=== PATIENT | male | born 1950 | race Caucasian/White ===

== ENCOUNTER 2017-01-09 17:09 | Emergency (ER) | payer OTHER, MEDICARE ==
[~2017-01-09] VITALS: Ht 185.4 cm; Wt 105.0 kg
[~2017-01-09 17:09] MED LIST: ALBU8I INH; ATOR40TA49 PO; CALTTAB PO; CARV12.52 PO; CETI10 PO; COUM5TAB PO; ECOT81TA2 PO; FIBER WELL GUMMIES PO; FURO1TAB93 PO; GNP400TA4 PO; LANO0.1212 PO; LANTUSP SQ; MAOX420T PO; MILK500C PO; MULTCHW12 PO; OSTETAB7 PO; REME15TA PO; SALM10002 PO; SERT-129 PO; VITA200017 PO; WARF2.5T40 PO; [UNRECOGNIZED DRUG - REMARK] EACH EYE; cranberry PO
[2017-01-09 17:13] VITALS: BP 95/55; PULSE 81; RESP 19; TEMP 98.4; O2SAT 99
[2017-01-09] MEDS ORDERED: SODIUM CHLORIDE 0.9% FLUSH 5 ML FLUSH IVF PRN (17:30)
[2017-01-09] MEDS ORDERED: SODIUM CHLORID 0.9% 500 ML INJ 500 ML IV ONE (17:30)
[2017-01-09 17:33] VITALS: O2SAT 100
[2017-01-09 17:34] VITALS: BP_SYST 102; BP_SYST 143; BP_SYST 89; BP_DIAS 53; BP_DIAS 61; BP_DIAS 84; RESP 20; RESP 21
[2017-01-09] MEDS ORDERED: SODIUM CHLOR 0.9% 1000 ML INJ 1,000 ML IV ONE ×2 (17:45→19:00)
--- NOTE | 2017-01-09 17:46 | PD ---
HPI Chief Complaint: Fall Time Seen by Provider: 17:27 Travel History International Travel<30 days: No Contact w/Intl Traveler<30days: No Traveled to known affect area: No History of Present Illness HPI 66-year-old male with history of previous CVA, HTN, HLD, DM and alcoholism, A. fib here with complaint of near-syncopal episode. He had been out drinking at a bar with friends today, getting out of the vehicle once he returned home patient felt generally weak and near syncopal, slumped to the ground. He did not have a syncopal episode, did not hit his head, lose consciousness and denies any nausea or vomiting. No chest pain, shortness of breath. No palpitations. When EMS arrived patient was hypotensive in the 70s systolic, pale. Normalized en route. Patient denies any symptoms at this time other than feeling generally weak and fatigued. PFSH Past Medical History Hx Anticoagulant Therapy: Yes Asthma: No Atrial Fibrillation: Yes Anxiety: Yes Depression: Yes Heart Rhythm Problems: Yes (afib) Cancer: No Cardiovascular Problems: Yes (afib) High Cholesterol: Yes Chest Pain: No Congestive Heart Failure: Yes COPD: Yes Cerebrovascular Accident: Yes Diabetes: Yes Patient Takes Glucophage: No Diminished Hearing: No Endocrine: Yes Gastrointestinal Disorders: No Genitourinary: Yes Hypertension: Yes Immune Disorder: No Implanted Vascular Access Dvce: No Kidney Stones: No Musculoskeletal: No Neurologic: Yes (Neuropathy) Psychiatric: Yes Reproductive: No Respiratory: Yes Immunizations Current: No Renal Failure: No Seizures: Yes Sleep Apnea: No Thyroid Disease: No Tetanus Vaccination: < 5 Years Influenza Vaccination: Yes Past Surgical History Abdominal Surgery: Yes (HERNIA) Appendectomy: Yes Eye Surgery: Yes (LASER FOR CATARACT and back of eyes) Tonsillectomy: Yes Other Surgery: Yes Social History Alcohol Use: Yes (DAILY ) Tobacco Use: No Substance Use: No Allergies-Medications (Allergen,Severity, Reaction): Coded Allergies: No Known Allergies (Verified , 01/09/17) Reported Meds & Prescriptions Reported Meds & Active Scripts Active Reported Glucosamine 1500 Complex (Yrawzmicpif-Wrcavvayjsw-Wrp C-) 1 Cap Cap 1,500 Mg PO DAILY [Fiber Well Gummies ] 10 Grain PO DAILY [Mauricio Red] 750 Mg PO DAILY Green Tea (Green Tea (Camillia Sinensis)) 250 Mg Cap 500 Mg PO DAILY Garlic 1,000 Mg Cap 1,000 Mg PO DAILY Aspirin EC Low Dose (Aspirin) 81 Mg Tabec 81 Mg PO DAILY Vitamin D3 (Cholecalciferol) 2,000 Unit Tab 2,000 Units PO DAILY Calcium Citrate + D3 Maximum Strength (Calcium Citrate-Vitamin D) 315-250 Mg- Unit Tab 2 Tab PO DAILY [place] Oil (Nutritional Supplements) 1 Cap Cap 1,080 Mg PO DAILY Cranberry (Cranberry (Vaccinium Macrocarpon)) 600 Mg Tab 8,400 Mg PO DAILY One-A-Day Mens (Multiple Vitamin) 1 Tab Tab 2 Tab PO DAILY Xalatan Opth Drops (Latanoprost) 0.005% Drops 1 Drop EACH EYE HS Ventolin Hfa 18 GM Inh (Albuterol Sulfate) 90 Mcg/Act Aer 2 Puff INH Q6H PRN Magnesium Oxide 420 Mg Tab 210 Mg PO DAILY Tanzeum 4-Pack Inj (Albiglutide) 30 Mg Pfpen 30 Mg SQ Q7D Lantus Inj (Insulin Glargine) 100 Unit/Ml Inj 16 Units SQ HS Remeron (Mirtazapine) 15 Mg Tab 15 Mg PO HS Zoloft (Sertraline HCl) 100 Mg Tab 150 Mg PO DAILY Lanoxin (Digoxin) 0.125 Mg Tab 0.125 Mg PO HS Coumadin (Warfarin) 5 Mg Tab 2.5 Mg PO SUTUTHSA Take 1/2 tablet (2.5mg) daily on Tuesday,Tuesday, and Tuesday Coumadin (Warfarin) 5 Mg Tab 5 Mg PO MOWEFR Take 1 tablet (5mg) on daily on Tuesday,Tuesday and Tuesday Potassium Chloride ER (Potassium Chloride) 10 Meq Tab 10 Meq PO DAILY Lasix (Furosemide) 20 Mg Tab 20 Mg PO DAILY Coreg (Carvedilol) 25 Mg Tab 12.5 Mg PO BID Review of Systems Except as stated in HPI: all other systems reviewed are Neg Physical Exam Narrative GENERAL: Well-appearing elderly male in no acute distress SKIN: Warm and dry. HEAD: Normocephalic. Atraumatic EYES: Pupils equal and round. No scleral icterus. No injection or drainage. ENT: No nasal bleeding or discharge. Mucous membranes pink and moist. NECK: Supple CARDIOVASCULAR: Regular rate and irregularly irregular rhythm. No murmur appreciated. RESPIRATORY: No accessory muscle use. Clear to auscultation. Breath sounds equal bilaterally. GASTROINTESTINAL: Abdomen soft, non-tender, nondistended. Obese MUSCULOSKELETAL: 1+ BLE edema NEUROLOGICAL: Awake and alert. Motor grossly within normal limits. Normal speech. PSYCHIATRIC: Appropriate mood and affect; insight and judgment normal. Data Data Last Documented VS Vital Signs Date Time Temp Pulse Resp B/P Pulse Ox O2 Delivery O2 Flow Rate FiO2 01/09/17 18:00 94 18 139/89 100 Room Air 01/09/17 17:13 98.4 Orders Electrocardiogram (01/09/17 17:28) Basic Metabolic Panel (Bmp) (01/09/17 17:28) Complete Blood Count With Diff (01/09/17 17:28) Magnesium (Mg) (01/09/17:28) Troponin I (01/09/17:28) Act Partial Throm Time (Ptt) (01/09/17 17:28) Prothrombin Time / Inr (Pt) (01/09/17 17:28) Ecg Monitoring (01/09/17:28) Iv Access Insert/Monitor (01/09/17 17:28) Oximetry (01/09/17 17:28) Sodium Chloride 0.9% Flush (Ns Flush) (01/09/17 17:30) Alcohol (Ethanol) (01/09/17 17:28) Sodium Chlorid 0.9% 500 Ml Inj (Ns 500 M (01/09/17 17:30) Orthostatic Vital Signs (01/09/17 17:30) Sodium Chlor 0.9% 1000 Ml Inj (Ns 1000 M (01/09/17 17:45) Labs Laboratory Tests Test 01/09/17 17:45 White Blood Count 5.4 TH/MM3 Red Blood Count 3.14 MIL/MM3 Hemoglobin 10.9 GM/DL Hematocrit 32.4 % Mean Corpuscular Volume 103.2 FL Mean Corpuscular Hemoglobin 34.8 PG Mean Corpuscular Hemoglobin 33.7 % Concent Red Cell Distribution Width 15.3 % Platelet Count 125 TH/MM3 Mean Platelet Volume 9.8 FL Neutrophils (%) (Auto) 68.4 % Lymphocytes (%) (Auto) 17.6 % Monocytes (%) (Auto) 9.0 % Eosinophils (%) (Auto) 3.8 % Basophils (%) (Auto) 1.2 % Neutrophils # (Auto) 3.7 TH/MM3 Lymphocytes # (Auto) 0.9 TH/MM3 Monocytes # (Auto) 0.5 TH/MM3 Eosinophils # (Auto) 0.2 TH/MM3 Basophils # (Auto) 0.1 TH/MM3 CBC Comment DIFF FINAL Differential Comment Prothrombin Time 17.5 SEC Prothromb Time International 1.6 RATIO Ratio Activated Partial 29.5 SEC Thromboplast Time Sodium Level 137 MEQ/L Potassium Level 4.5 MEQ/L Chloride Level 106 MEQ/L Carbon Dioxide Level 17.3 MEQ/L Anion Gap 14 MEQ/L Blood Urea Nitrogen 46 MG/DL Creatinine 2.97 MG/DL Estimat Glomerular Filtration 21 ML/MIN Rate Random Glucose 172 MG/DL Calcium Level 8.9 MG/DL Magnesium Level 2.0 MG/DL Troponin I LESS THAN 0.02 NG/ML Ethyl Alcohol Level 52 MG/DL [facility] Medical Decision Making Medical Screen Exam Complete: Yes Emergency Medical Condition: Yes Medical Record Reviewed: Yes Differential Diagnosis 66-year-old male with history of previous CVA, HTN, HLD, DM and alcoholism, A. fib here with complaint of near-syncopal episode. Differential includes ACS, arrhythmia, vasovagal/orthostatic syncope, alcohol intoxication, electrolyte abnormality, symptomatic anemia and less likely CHF exacerbation. Narrative Course Patient placed on monitor, IV established and blood obtained. Twelve-lead EKG shows A. fib without notable ST or T-wave abnormalities and normal intervals. Orthostatics were obtained and are grossly positive with a drop in blood pressure from 143/84-89/53 from lying to standing. Patient was given 1 L normal saline bolus. CBC, BMP, magnesium, troponin, coags, blood alcohol level were obtained and notable for BUN 46, creatinine 2.97 which is at baseline per patient. Blood alcohol level 52. After 1 L normal saline bolus patient's orthostatic vital signs are 191/107 while lying, 140/71 sitting and 109/60 while standing. He was given second liter normal saline bolus with plans to repeat vital signs, trial of ambulation for hopeful disposition home. Diagnosis Primary Impression: Orthostatic syncope Karla Fitzgerald MD Jan 09, 2017 17:45
[2017-01-09 18:00] VITALS: BP 139/89; PULSE 94; RESP 18; O2SAT 100
[2017-01-09 18:07] LABS: AUTOMATED NEUTROPHIL # 3.7 TH/MM3 (1.8-7.7); BASOPHIL # 0.1 TH/MM3 (0-0.2); BASOPHIL % 1.2 % (0.0-2.0); EOSINOPHIL # 0.2 TH/MM3 (0-0.4); EOSINOPHIL % 3.8 % (0.0-4.0); HEMATOCRIT 32.4 % (39.0-51.0); HEMO FLAGS DIFF FINAL; LYMPH % 17.6 % (9.0-44.0); LYMPHOCYTE # 0.9 TH/MM3 (1.0-4.8); MEAN CELL VOLUME 103.2 FL (80.0-100.0); MEAN CORPUSCULAR HEMOGLOBIN 34.8 PG (27.0-34.0); MEAN CORPUSCULAR HGB CONC 33.7 % (32.0-36.0); NEUT % 68.4 % (16.0-70.0); PLATELET COUNT 125 TH/MM3 (150-450); RED BLOOD COUNT 3.14 MIL/MM3 (4.50-5.90); RED CELL DISTRIBUTION WIDTH 15.3 % (11.6-17.2); WHITE BLOOD COUNT 5.4 TH/MM3 (4.0-11.0)
[2017-01-09 18:15] LABS: APTT (PATIENT) 29.5 SEC (24.3-30.1); INTERNATIONAL NORMALIZED RATIO 1.6 RATIO; PROTHROMBIN TIME - PATIENT 17.5 SEC (9.8-11.6)
[2017-01-09] MEDS ORDERED: FURO1TAB62 PO (18:25)
[2017-01-09] MEDS ORDERED: CORE25TA PO (18:25)
[2017-01-09] MEDS ORDERED: POTA10TA2 PO (18:25)
[2017-01-09] MEDS ORDERED: CRAN600T PO (18:26)
[2017-01-09] MEDS ORDERED: COUM5TAB PO ×2 (18:26)
[2017-01-09] MEDS ORDERED: MAGN420T PO (18:26)
[2017-01-09] MEDS ORDERED: CALC1TAB19 PO (18:26)
[2017-01-09] MEDS ORDERED: FIBER WELL GUMMIES PO (18:26)
[2017-01-09] MEDS ORDERED: GLUC15002 PO (18:26)
[2017-01-09] MEDS ORDERED: LANO0.1212 PO (18:26)
[2017-01-09] MEDS ORDERED: MEGA RED PO (18:26)
[2017-01-09] MEDS ORDERED: ALBI1INJ SQ (18:26)
[2017-01-09] MEDS ORDERED: LANTUS2P SQ (18:26)
[2017-01-09] MEDS ORDERED: ASPI81TA2 PO (18:26)
[2017-01-09] MEDS ORDERED: SALM10002 PO (18:26)
[2017-01-09] MEDS ORDERED: GREE250C PO (18:26)
[2017-01-09] MEDS ORDERED: GARL1CAP PO (18:26)
[2017-01-09] MEDS ORDERED: REME15TA PO (18:26)
[2017-01-09] MEDS ORDERED: ZOLO100T PO (18:26)
[2017-01-09] MEDS ORDERED: VITA200012 PO (18:26)
[2017-01-09] MEDS ORDERED: ONE-TAB4 PO (18:26)
[2017-01-09] MEDS ORDERED: VENTAER INH (18:26)
[2017-01-09] MEDS ORDERED: LATA.005%O EACH EYE (18:26)
[2017-01-09 18:40] LABS: ANION GAP 14 MEQ/L (5-15); BICARBONATE 17.3 MEQ/L (21.0-32.0); BLOOD UREA NITROGEN 46 MG/DL (7-18); CHLORIDE 106 MEQ/L (98-107); GLOMERULAR FILTRATION RATE 21 ML/MIN (>89); POTASSIUM 4.5 MEQ/L (3.5-5.1); SODIUM (NA) 137 MEQ/L (136-145)
[2017-01-09 19:00] VITALS: BP_SYST 109; BP_SYST 140; BP_SYST 191; BP_DIAS 107; BP_DIAS 60; BP_DIAS 71
--- NOTE | 2017-01-09 20:12 | PD ---
Data Data Last Documented VS Vital Signs Date Time Temp Pulse Resp B/P Pulse Ox O2 Delivery O2 Flow Rate FiO2 01/09/17 20:24 95 159/98 135/92 124/73 01/09/17 18:00 18 100 Room Air 01/09/17 17:13 98.4 Orders Electrocardiogram (01/09/17 17:28) Basic Metabolic Panel (Bmp) (01/09/17 17:28) Complete Blood Count With Diff (01/09/17 17:28) Magnesium (Mg) (01/09/17 17:28) Troponin I (01/09/17 17:28) Act Partial Throm Time (Ptt) (01/09/17 17:28) Prothrombin Time / Inr (Pt) (01/09/17 17:28) Ecg Monitoring (01/09/17:28) Iv Access Insert/Monitor (01/09/17 17:28) Oximetry (01/09/17 17:28) Sodium Chloride 0.9% Flush (Ns Flush) (01/09/17 17:30) Alcohol (Ethanol) (01/09/17 17:28) Sodium Chlorid 0.9% 500 Ml Inj (Ns 500 M (01/09/17 17:30) Orthostatic Vital Signs (01/09/17 17:30) Sodium Chlor 0.9% 1000 Ml Inj (Ns 1000 M (01/09/17 17:45) Sodium Chlor 0.9% 1000 Ml Inj (Ns 1000 M (01/09/17 19:00) Labs Laboratory Tests Test 01/09/17 17:45 White Blood Count 5.4 TH/MM3 Red Blood Count 3.14 MIL/MM3 Hemoglobin 10.9 GM/DL Hematocrit 32.4 % Mean Corpuscular Volume 103.2 FL Mean Corpuscular Hemoglobin 34.8 PG Mean Corpuscular Hemoglobin 33.7 % Concent Red Cell Distribution Width 15.3 % Platelet Count 125 TH/MM3 Mean Platelet Volume 9.8 FL Neutrophils (%) (Auto) 68.4 % Lymphocytes (%) (Auto) 17.6 % Monocytes (%) (Auto) 9.0 % Eosinophils (%) (Auto) 3.8 % Basophils (%) (Auto) 1.2 % Neutrophils # (Auto) 3.7 TH/MM3 Lymphocytes # (Auto) 0.9 TH/MM3 Monocytes # (Auto) 0.5 TH/MM3 Eosinophils # (Auto) 0.2 TH/MM3 Basophils # (Auto) 0.1 TH/MM3 CBC Comment DIFF FINAL Differential Comment Prothrombin Time 17.5 SEC Prothromb Time International 1.6 RATIO Ratio Activated Partial 29.5 SEC Thromboplast Time Sodium Level 137 MEQ/L Potassium Level 4.5 MEQ/L Chloride Level 106 MEQ/L Carbon Dioxide Level 17.3 MEQ/L Anion Gap 14 MEQ/L Blood Urea Nitrogen 46 MG/DL Creatinine 2.97 MG/DL Estimat Glomerular Filtration 21 ML/MIN Rate Random Glucose 172 MG/DL Calcium Level 8.9 MG/DL Magnesium Level 2.0 MG/DL Troponin I LESS THAN 0.02 NG/ML Ethyl Alcohol Level 52 MG/DL MDM Supervised Visit with RANJITH: Yes Diagnosis Primary Impression: Orthostatic syncope Sukumar He MD Jan 09, 2017 20:12
[2017-01-09 20:24] VITALS: BP_SYST 124; BP_SYST 135; BP_SYST 159; BP_DIAS 73; BP_DIAS 92; BP_DIAS 98
--- NOTE | 2017-01-09 20:55 | PD ---
Data Data Last Documented VS Vital Signs Date Time Temp Pulse Resp B/P Pulse Ox O2 Delivery O2 Flow Rate FiO2 01/09/17 20:24 95 159/98 135/92 124/73 01/09/17 18:00 18 100 Room Air 01/09/17 17:13 98.4 Orders Electrocardiogram (01/09/17 17:28) Basic Metabolic Panel (Bmp) (01/09/17 17:28) Complete Blood Count With Diff (01/09/17 17:28) Magnesium (Mg) (01/09/17 17:28) Troponin I (01/09/17 17:28) Act Partial Throm Time (Ptt) (01/09/17 17:28) Prothrombin Time / Inr (Pt) (01/09/17 17:28) Ecg Monitoring (01/09/17:28) Iv Access Insert/Monitor (01/09/17 17:28) Oximetry (01/09/17 17:28) Sodium Chloride 0.9% Flush (Ns Flush) (01/09/17 17:30) Alcohol (Ethanol) (01/09/17 17:28) Sodium Chlorid 0.9% 500 Ml Inj (Ns 500 M (01/09/17 17:30) Orthostatic Vital Signs (01/09/17 17:30) Sodium Chlor 0.9% 1000 Ml Inj (Ns 1000 M (01/09/17 17:45) Sodium Chlor 0.9% 1000 Ml Inj (Ns 1000 M (01/09/17 19:00) Labs Laboratory Tests Test 01/09/17 17:45 White Blood Count 5.4 TH/MM3 Red Blood Count 3.14 MIL/MM3 Hemoglobin 10.9 GM/DL Hematocrit 32.4 % Mean Corpuscular Volume 103.2 FL Mean Corpuscular Hemoglobin 34.8 PG Mean Corpuscular Hemoglobin 33.7 % Concent Red Cell Distribution Width 15.3 % Platelet Count 125 TH/MM3 Mean Platelet Volume 9.8 FL Neutrophils (%) (Auto) 68.4 % Lymphocytes (%) (Auto) 17.6 % Monocytes (%) (Auto) 9.0 % Eosinophils (%) (Auto) 3.8 % Basophils (%) (Auto) 1.2 % Neutrophils # (Auto) 3.7 TH/MM3 Lymphocytes # (Auto) 0.9 TH/MM3 Monocytes # (Auto) 0.5 TH/MM3 Eosinophils # (Auto) 0.2 TH/MM3 Basophils # (Auto) 0.1 TH/MM3 CBC Comment DIFF FINAL Differential Comment Prothrombin Time 17.5 SEC Prothromb Time International 1.6 RATIO Ratio Activated Partial 29.5 SEC Thromboplast Time Sodium Level 137 MEQ/L Potassium Level 4.5 MEQ/L Chloride Level 106 MEQ/L Carbon Dioxide Level 17.3 MEQ/L Anion Gap 14 MEQ/L Blood Urea Nitrogen 46 MG/DL Creatinine 2.97 MG/DL Estimat Glomerular Filtration 21 ML/MIN Rate Random Glucose 172 MG/DL Calcium Level 8.9 MG/DL Magnesium Level 2.0 MG/DL Troponin I LESS THAN 0.02 NG/ML Ethyl Alcohol Level 52 MG/DL MDM Medical Record Reviewed: Yes Supervised Visit with RANJITH: No Narrative Course CBC & BMP Diagram 01/09/17 17:45 Tn < 0.02 EtOH 52 INR 1.6 EKG: A. fib without notable ST or T-wave abnormalities and normal intervals Ambulatory without difficulty. Orthostasis has improved. [facility] Diagnosis Primary Impression: Orthostatic syncope Referrals: [facility] [place] 2 days Additional Instruction: You have a choice when it comes to health care, and we are glad that you chose [facility]. Hopefully, we have met your expectations on today's visit. You are welcome to return to [facility] at any time, as we are committed to meeting the health care needs of our community. Med/Other Pt SpecificInfo: No Change to Meds Disposition: 01 DISCHARGE HOME Condition: Stable Sukumar He MD Jan 09, 2017 20:55
--- NOTE | 2017-01-10 14:30 | EKG ---
Date Performed: 01/09/2017 Time Performed: 17:27:28 PTAGE: 66 years EKG: ATRIAL FIBRILLATION MODERATE ST DEPRESSION ABNORMAL ECG PREVIOUS TRACING : 08/09/2016 16.52 DOCTOR: [place] Interpretating Date/Time 01/10/2017 14:27:40
== END 2017-01-09 22:19 | disposition home or self-care (01) ==
LOC: NEPC 17:09
DX: I95.1 Orthostatic hypotension (principal); R55 Syncope and collapse; I10 Essential (primary) hypertension; E78.5 Hyperlipidemia, unspecified; E11.9 Type 2 diabetes mellitus without complications; I48.91 Unspecified atrial fibrillation; R94.31 Abnormal electrocardiogram [ECG] [EKG]; Z79.01 Long term (current) use of anticoagulants; Z79.4 Long term (current) use of insulin; Z86.73 Personal history of transient ischemic attack (TIA), and cerebral infarction without residual deficits; Z86.79 Personal history of other diseases of the circulatory system; Z87.09 Personal history of other diseases of the respiratory system; Z87.448 Personal history of other diseases of urinary system; Z86.69 Personal history of other diseases of the nervous system and sense organs; Z86.59 Personal history of other mental and behavioral disorders
CPT/HCPCS: 80048; 80320; 83735; 84484; 85025; 85610; 85730; 93005; 96360; 96361; 99284; J7030

== ENCOUNTER 2018-04-13 10:14 | Inpatient (IN) | payer MEDICARE, OTHER ==
[2018-04-13] VITALS (15 sets, daily range): BP systolic 93–198; BP diastolic 63–106; PULSE 54–93; RESP 12–26; TEMP 97.6–98.9; O2SAT 95–100
[~2018-04-13] VITALS: Ht 180.3 cm; Wt 112.0 kg
[~2018-04-13 10:14] MED LIST changes: +ALBI1INJ SQ; -ALBU8I INH; +ASPI81TA22 PO; -ATOR40TA49 PO; +CALC1TAB19 PO; -CALTTAB PO; -CARV12.52 PO; -CETI10 PO; +CORE25TA PO; +CRAN600T PO; -ECOT81TA2 PO; +FURO1TAB62 PO; -FURO1TAB93 PO; +GARL1CAP PO; +GLUCOSAMINE 1501 CAP PO; -GNP400TA4 PO; +GREE250C PO; +LANTUS2P SQ; -LANTUSP SQ; +LATA.005%O EACH EYE; +MAGN420T PO; -MAOX420T PO; +MEGA RED PO; -MILK500C PO; -MULTCHW12 PO; +ONE-TAB4 PO; -OSTETAB7 PO; +POTA10TA2 PO; -SERT-129 PO; +VENTAER INH; +VITA200012 PO; -VITA200017 PO; -WARF2.5T40 PO; +ZOLO100T PO; -[UNRECOGNIZED DRUG - REMARK] EACH EYE; -cranberry PO
[2018-04-13] MEDS ORDERED: ETOMIDATE 40 MG/20 ML VIAL ONE (10:22)
[2018-04-13] MEDS ORDERED: VECURONIUM BROMIDE 10 MG VIAL ONE (10:23)
[2018-04-13] MEDS ORDERED: SODIUM CHLOR 0.9% 1000 ML INJ 1,000 ML IV ONE ×2 (10:23→11:15)
[2018-04-13] MEDS ORDERED: PROPOFOL 200 MG/20 ML AMP IV ONE (10:30)
[2018-04-13] MEDS ORDERED: VECURONIUM BROMIDE 10 MG VIAL IV PUSH ONE (10:30)
[2018-04-13] MEDS ORDERED: ETOMIDATE 20 MG/10 ML VIAL IVP ONE (10:30)
[2018-04-13] MEDS ORDERED: PROPOFOL 1000 MG/100 ML INJ 100 ML IV PRN (10:30)
[2018-04-13] MEDS ORDERED: SODIUM CHLORIDE 0.9% FLUSH 10 ML FLUSH IVF PRN (10:30)
--- NOTE | 2018-04-13 10:50 | PD ---
HPI Chief Complaint: Code Blue Time Seen by Provider: 10:23 Travel History International Travel<30 days: No Contact w/Intl Traveler<30days: No Traveled to known affect area: No History of Present Illness HPI 68-year-old male patient presents to the ER today brought in by EMS was a CODE BLUE, was in PEA arrest when they found him slumped in the car, apparently had just eaten at a restaurant and walked out to his car, and slumped over according to patient's . He was in PEA and was given 3 rounds of CPR and epinephrine. He arrives with bag valve mask in progress, EMS noted that he had taken a few gas of breathing while they were on the ramp, and by the time he got into the ER room, he had a detectable pulse, perfusing rhythm seen on monitor with good blood pressure. He is still unresponsive to pain. He was intubated by me for airway protection. Modifying Factors: None Associated Signs & Symptoms: PEA arrest, intubated Risk Factors: Multiple medical issues PFSH Past Medical History Hx Anticoagulant Therapy: Yes Asthma: No Atrial Fibrillation: Yes Anxiety: Yes Depression: Yes Heart Rhythm Problems: Yes (afib) Cancer: No Cardiovascular Problems: Yes (afib) High Cholesterol: Yes Chest Pain: No Congestive Heart Failure: Yes COPD: Yes Cerebrovascular Accident: Yes Diabetes: Yes Diminished Hearing: No Endocrine: Yes Gastrointestinal Disorders: No Genitourinary: Yes Hypertension: Yes Immune Disorder: No Implanted Vascular Access Dvce: No Kidney Stones: No Musculoskeletal: No Neurologic: Yes (Neuropathy) Psychiatric: Yes Reproductive: No Respiratory: Yes Immunizations Current: No Renal Failure: No Seizures: Yes Sleep Apnea: No Thyroid Disease: No Past Surgical History Abdominal Surgery: Yes (HERNIA) Appendectomy: Yes Eye Surgery: Yes (LASER FOR CATARACT and back of eyes) Tonsillectomy: Yes Other Surgery: Yes Social History Alcohol Use: Yes (DAILY ) Tobacco Use: No Substance Use: No Allergies-Medications (Allergen,Severity, Reaction): Coded Allergies: No Known Allergies (Verified , 01/09/17) Reported Meds & Prescriptions Reported Meds & Active Scripts Active Reported Buspirone (Buspirone HCl) 15 Mg Tab 15 Mg PO BID Carbidopa-Levodopa 25-100 Mg Tab 1 Tab PO HS Carbidopa-Levodopa 25-100 Mg Tab 1 Tab PO Q8HR Digoxin 0.125 Mg Tab 0.125 Mg PO DAILY [Fiber Well Gummies ] 10 Grain PO DAILY [Mauricio Red] 750 Mg PO DAILY Aspirin EC Low Dose (Aspirin) 81 Mg Tabec 81 Mg PO DAILY Calcium Citrate + D3 Maximum Strength (Calcium Citrate-Vitamin D) 315-250 Mg- Unit Tab 2 Tab PO DAILY Voss Oil (Nutritional Supplements) 1 Cap Cap 1,080 Mg PO DAILY One-A-Day Mens (Multiple Vitamin) 1 Tab Tab 2 Tab PO DAILY Xalatan Opth Drops (Latanoprost) 0.005% Drops 1 Drop EACH EYE HS Ventolin Hfa 18 GM Inh (Albuterol Sulfate) 90 Mcg/Act Aer 2 Puff INH Q6H PRN Magnesium Oxide 420 Mg Tab 210 Mg PO DAILY Tanzeum 4-Pack Inj (Albiglutide) 30 Mg Pfpen 30 Mg SQ Q7D Lantus Inj (Insulin Glargine) 100 Unit/Ml Inj 16 Units SQ HS Remeron (Mirtazapine) 15 Mg Tab 15 Mg PO HS Zoloft (Sertraline HCl) 100 Mg Tab 150 Mg PO DAILY Coumadin (Warfarin) 5 Mg Tab 2.5 Mg PO SUTUTHSA Take 1/2 tablet (2.5mg) daily on Tuesday,Tuesday, and Tuesday Coumadin (Warfarin) 5 Mg Tab 5 Mg PO MOWEFR Take 1 tablet (5mg) on daily on Tuesday,Tuesday and Tuesday Potassium Chloride ER (Potassium Chloride) 10 Meq Tab 10 Meq PO DAILY Lasix (Furosemide) 20 Mg Tab 20 Mg PO DAILY Coreg (Carvedilol) 25 Mg Tab 12.5 Mg PO BID Review of Systems ROS Limitations: Intubated Physical Exam Narrative GENERAL: Well-developed elderly male patient currently unresponsive to pain, GCS 3, intubated by me in the ER. SKIN: Focused skin assessment, cool and diaphoretic. HEAD: Atraumatic. Normocephalic. EYES: Pupils equal and round. No scleral icterus. No injection or drainage. ENT: No nasal bleeding or discharge. Mucous membranes pink and moist. NECK: Trachea midline. No JVD. CARDIOVASCULAR: Regular rate and rhythm. No murmur appreciated. RESPIRATORY: Bag valve mask in progress initially, intubated, breath sounds heard on both sides without coarse breath sounds identified. GASTROINTESTINAL: Abdomen soft, non-tender, moderately distended. Hepatic and splenic margins not palpable. Notable ecchymosis to the lower abdomen and right flank area. MUSCULOSKELETAL: No obvious deformities. No clubbing. No cyanosis. No edema. NEUROLOGICAL: Intubated, unresponsive, GCS 3. PSYCHIATRIC: Unable to assess. Data Data Last Documented VS Vital Signs Date Time Temp Pulse Resp B/P (MAP) Pulse Ox O2 Delivery O2 Flow Rate FiO2 04/13/18 11:58 54 12 93/63 (73) 100 Auto-Vent 100 04/13/18 10:27 98.9 Orders Orders Etomidate Inj (Amidate Inj) (04/13/18 10:22) Vecuronium 10 Mg Inj (Norcuron 10 Mg Inj (04/13/18 10:23) Chest, Single Ap (04/13/18 10:23) Arterial Blood Gas (Abg) (04/13/18 10:23) Ecg Monitoring (04/13/18 10:23) Iv Access Insert/Monitor (04/13/18 10:23) Ng Gastric Tube Insert/Monitor (04/13/18 10:23) Urinary Catheter Insert/Apply (04/13/18 10:23) Oximetry (04/13/18 10:23) Etomidate Inj (Amidate Inj) (04/13/18 10:30) Vecuronium 10 Mg Inj (Norcuron 10 Mg Inj (04/13/18 10:30) Sodium Chloride 0.9% Flush (Ns Flush) (04/13/18 10:30) Sodium Chlor 0.9% 1000 Ml Inj (Ns 1000 M (04/13/18 10:23) Restraints Non-Violent ABHI.Q3H (04/13/18 10:23) Propofol 200 Mg/20 Ml Inj (Diprivan 200 (04/13/18 10:30) Propofol 1000 Mg/100 Ml Inj (Diprivan 10 (04/13/18 10:30) Electrocardiogram (04/13/18 10:26) Complete Blood Count With Diff (04/13/18 10:26) Comprehensive Metabolic Panel (04/13/18 10:26) Magnesium (Mg) (04/13/18 10:26) Ckmb (Isoenzyme) Profile (04/13/18 10:26) Troponin I (04/13/18 10:26) Act Partial Throm Time (Ptt) (04/13/18 10:26) Prothrombin Time / Inr (Pt) (04/13/18 10:26) Ct Brain W/O Iv Contrast(Rout) (04/13/18 10:26) Sodium Chlor 0.9% 1000 Ml Inj (Ns 1000 M (04/13/18 11:15) Sodium Bicarbonate 8.4% Inj (Sodium Bica (04/13/18 11:30) Ct Pulmonary Angiogram (04/13/18 11:30) Electrocardiogram (04/13/18 11:09) Admit Order (Ed Use Only) (04/13/18 11:54) Labs Laboratory Tests Test 04/13/18 11:04 04/13/18 11:08 Blood Gas Puncture Site RT RADIAL Blood Gas Patient Temperature 98.6 Blood Gas HCO3 16 mmol/L Blood Gas Base Excess -12.4 mmol/L Blood Gas Oxygen Saturation 97 % Arterial Blood pH 7.06 Arterial Blood Partial Pressure CO2 60 mmHg Arterial Blood Partial Pressure O2 394 mmHG Arterial Blood Oxygen Content 14.7 Vol % Arterial Blood Carboxyhemoglobin 1.0 % Arterial Blood Methemoglobin 1.0 % Blood Gas Hemoglobin 10.0 G/DL Oxygen Delivery Device VENTILATOR Blood Gas Ventilator Setting SEE COMMENTS Blood Gas Inspired Oxygen 100 % White Blood Count 5.7 TH/MM3 Red Blood Count 2.81 MIL/MM3 Hemoglobin 10.1 GM/DL Hematocrit 32.0 % Mean Corpuscular Volume 113.8 FL Mean Corpuscular Hemoglobin 35.9 PG Mean Corpuscular Hemoglobin Concent 31.6 % Red Cell Distribution Width 16.4 % Platelet Count 116 TH/MM3 Mean Platelet Volume 10.0 FL Neutrophils (%) (Auto) 68.3 % Lymphocytes (%) (Auto) 21.3 % Monocytes (%) (Auto) 6.5 % Eosinophils (%) (Auto) 3.0 % Basophils (%) (Auto) 0.9 % Neutrophils # (Auto) 3.9 TH/MM3 Lymphocytes # (Auto) 1.2 TH/MM3 Monocytes # (Auto) 0.4 TH/MM3 Eosinophils # (Auto) 0.2 TH/MM3 Basophils # (Auto) 0.1 TH/MM3 CBC Comment AUTO DIFF Prothrombin Time 23.9 SEC Prothromb Time International Ratio 2.4 RATIO Activated Partial Thromboplast Time 29.7 SEC Blood Urea Nitrogen 48 MG/DL Creatinine 3.12 MG/DL Random Glucose 164 MG/DL Total Protein 7.1 GM/DL Albumin 3.1 GM/DL Calcium Level 8.2 MG/DL Magnesium Level 2.1 MG/DL Alkaline Phosphatase 82 U/L Aspartate Amino Transf (AST/SGOT) 253 U/L Alanine Aminotransferase (ALT/SGPT) 27 U/L Total Bilirubin 0.6 MG/DL Sodium Level 140 MEQ/L Potassium Level 5.6 MEQ/L Chloride Level 111 MEQ/L Carbon Dioxide Level 16.0 MEQ/L Anion Gap 13 MEQ/L Estimat Glomerular Filtration Rate 20 ML/MIN Total Creatine Kinase 72 U/L Troponin I LESS THAN 0.02 NG/ML MDM Medical Decision Making Medical Screen Exam Complete: Yes Emergency Medical Condition: Yes Medical Record Reviewed: Yes Interpretation(s) EKG shows normal sinus rhythm at a rate of 60 bpm. No signs of acute ST elevations or depressions. Laboratory Tests Test 04/13/18 11:04 04/13/18 11:08 Blood Gas HCO3 16 mmol/L (22-26) Blood Gas Base Excess -12.4 mmol/L (-2-2) Arterial Blood pH 7.06 (7.380-7.420) Arterial Blood Partial Pressure CO2 60 mmHg (38-42) Arterial Blood Partial Pressure O2 394 mmHG (61-120) Blood Gas Hemoglobin 10.0 G/DL (12.0-16.0) Red Blood Count 2.81 MIL/MM3 (4.50-5.90) Hemoglobin 10.1 GM/DL (13.0-17.0) Hematocrit 32.0 % (39.0-51.0) Mean Corpuscular Volume 113.8 FL (80.0-100.0) Mean Corpuscular Hemoglobin 35.9 PG (27.0-34.0) Mean Corpuscular Hemoglobin Concent 31.6 % (32.0-36.0) Platelet Count 116 TH/MM3 (150-450) Prothrombin Time 23.9 SEC (9.8-11.6) Blood Urea Nitrogen 48 MG/DL (7-18) Creatinine 3.12 MG/DL (0.60-1.30) Random Glucose 164 MG/DL (74-106) Albumin 3.1 GM/DL (3.4-5.0) Calcium Level 8.2 MG/DL (8.5-10.1) Aspartate Amino Transf (AST/SGOT) 253 U/L (15-37) Potassium Level 5.6 MEQ/L (3.5-5.1) Chloride Level 111 MEQ/L (98-107) Carbon Dioxide Level 16.0 MEQ/L (21.0-32.0) Estimat Glomerular Filtration Rate 20 ML/MIN (>89) Troponin I LESS THAN 0.02 NG/ML Last 24 hours Impressions Chest X-Ray 04/13/18 1023 Signed Impressions: CONCLUSION: Endotracheal tube and nasogastric tube in good position. Bilateral airspace dis ease as above without effusion or pneumothorax. Differential Diagnosis PEA arrest/intubated Narrative Course Patient had regained pulses by the time he made it to the ER. Patient is intubated by me for airway protection. Initial ABG postcode shows significant respiratory and likely metabolic acidosis. Patient was given bicarb and his respiratory rate was increased, his oxygenation was decreased to 60% on the respirator. Chest x-ray shows that the ET tube is in place. Patient's arrives and notes that the patient is a DNR. I have apologized her, we were not aware of his DNR order, but at this point, I have made sure that DNR paperwork has been placed on patient's chart for any further codes. Lab work shows that he has elevated BUN and creatinine, he is dialysis, his potassium is somewhat elevated. I have talked to project portfolio analyst, , who came down to see the patient, wanted me to get a CT of the head and CTA of the chest to rule out PE for determination of further treatment. He accepts the case for admission. Aggregate critical care time was 45 minutes. Time to perform other separately billable procedures was not included in the critical care time. My time did not include minutes spent treating any other patients simultaneously or on activities that did not directly contribute to the patient's treatment. The services I provided to this patient were to treat and/or prevent clinically significant deterioration that could result in: Respiratory arrest, dysrhythmias , I provided critical care services requiring my management, as noted below: Chart data review, documentation time, medication orders and management, vital sign assessments/reviewing monitor data, ordering and reviewing lab tests, ordering and interpreting/reviewing x-rays and diagnostic studies, care of the patient and discussion of the patient with the admitting physicians. Procedures Procedure Narrative After the risks and benefits were discussed the following procedure was performed: INTUBATION: The patient was put in optimal position for the procedure. Rapid sequence intubation was initiated by me using 20 milligrams of etomidate IV and 10 milligrams of vecuronium] IV. The patient was intubated with a 7.5 cuffed endotracheal tube. Tube placement was confirmed by visualization of the tube and balloon passing through the cords, capnometry and subsequent chest x-ray. Breath sounds were equal and well aerated bilaterally postintubation. No breath sounds over stomach. Patient tolerated procedure well. Diagnosis Primary Impression: PEA (Pulseless electrical activity) Additional Impression: Endotracheally intubated Admitting Information Admitting Physician Requests: Admit Brii Chew MD April 13, 2018 10:50
--- NOTE | 2018-04-13 11:04 | RADRPT ---
EXAM DATE: 04/13/2018 10:56 AM EDT AGE/SEX: 68 years / Male INDICATIONS: Post intubation CLINICAL DATA: This is the patient's subsequent encounter. Patient reports that signs and symptoms h ave been present for 1 day and indicates a pain score of Nonresponsive. MEDICAL/SURGICAL HISTORY: Non-responsive. Non-responsive. COMPARISON: [facility] [place], CHEST SINGLE AP, 08/09/2016. . FINDINGS: Endotracheal tube in good position. NG enters stomach. Bilateral airspace disease present with more c onsolidative appearance in the right upper lobe and right perihilar region. Differential diagnosis in cludes pneumonia and aspiration. No pneumothorax. No significant effusion. Cardiomegaly. CONCLUSION: Endotracheal tube and nasogastric tube in good position. Bilateral airspace disease as above without effusion or pneumothorax. Electronically signed by: Luiz Bruce MD 04/13/2018 11:03 AM EDT
[2018-04-13] MEDS ORDERED: SODIUM BICARBONATE 8.4% INJ 50 MEQ/50 ML SYR IV PUSH ONE (11:30)
[2018-04-13 11:34] LABS: AUTOMATED NEUTROPHIL # 3.9 TH/MM3 (1.8-7.7); BASOPHIL # 0.1 TH/MM3 (0-0.2); BASOPHIL % 0.9 % (0.0-2.0); EOSINOPHIL # 0.2 TH/MM3 (0-0.4); HEMOGLOBIN 10.1 GM/DL (13.0-17.0); LYMPH % 21.3 % (9.0-44.0); LYMPHOCYTE # 1.2 TH/MM3 (1.0-4.8); MEAN CELL VOLUME 113.8 FL (80.0-100.0); MEAN CORPUSCULAR HEMOGLOBIN 35.9 PG (27.0-34.0); MEAN CORPUSCULAR HGB CONC 31.6 % (32.0-36.0); MONO % 6.5 % (0.0-8.0); MONOCYTE # 0.4 TH/MM3 (0-0.9); NEUT % 68.3 % (16.0-70.0); PLATELET COUNT 116 TH/MM3 (150-450); RED BLOOD COUNT 2.81 MIL/MM3 (4.50-5.90); RED CELL DISTRIBUTION WIDTH 16.4 % (11.6-17.2); WHITE BLOOD COUNT 5.7 TH/MM3 (4.0-11.0)
[2018-04-13 11:44] LABS: INTERNATIONAL NORMALIZED RATIO 2.4 RATIO; PROTHROMBIN TIME - PATIENT 23.9 SEC (9.8-11.6)
[2018-04-13] MEDS ORDERED: BUSP15TA PO (11:57)
[2018-04-13] MEDS ORDERED: DIGO0.12 PO (11:57)
[2018-04-13] MEDS ORDERED: CARB25TA9 PO ×2 (11:57)
[2018-04-13 11:59] LABS: ALBUMIN 3.1 GM/DL (3.4-5.0); ALKALINE PHOSPHATASE 82 U/L (45-117); ALT (GPT) 27 U/L (12-78); AST (GOT) 253 U/L (15-37); BLOOD UREA NITROGEN 48 MG/DL (7-18); CALCIUM 8.2 MG/DL (8.5-10.1); CHLORIDE 111 MEQ/L (98-107); CREATININE 3.12 MG/DL (0.60-1.30); GLOMERULAR FILTRATION RATE 20 ML/MIN (>89); GLUCOSE,RANDOM 164 MG/DL (74-106); MAGNESIUM 2.1 MG/DL (1.5-2.5); SODIUM (NA) 140 MEQ/L (136-145); TOTAL BILIRUBIN ADULT 0.6 MG/DL (0.2-1.0); TOTAL PROTEIN 7.1 GM/DL (6.4-8.2); TROPONIN I LESS THAN 0.02 NG/ML (0.02-0.05)
[2018-04-13] MEDS ORDERED: NURSING INFORMATION XX SCH (12:15)
[2018-04-13] MEDS ORDERED: SODIUM CHLORIDE 0.9% FLUSH 10 ML FLUSH IV FLUSH PRN (12:15)
[2018-04-13] MEDS ORDERED: DEXTROSE 50% IN WATER 50 ML VIAL(D50) IV ONE (12:15)
[2018-04-13] MEDS ORDERED: CHLORHEXIDINE GLUCONATE 2 % 1 PACK (2 CLOTHS) TOP PRN (12:15)
[2018-04-13] MEDS ORDERED: INSULIN HUMAN REGULAR 1,000 UNITS/10 ML VIAL IV PUSH ONE (12:15)
[2018-04-13] MEDS ORDERED: RESP: ALBUTEROL 2.5 MG/IPRATROPIUM 0.5 MG NEB (PRN) INH (12:15)
[2018-04-13 12:16] LABS: BANDS 8 % (0-6); BASOPHILS 1 % (0-2); LYMPHOCYTES 18 % (9-44); METAMYELOCYTES 1 % (0-1); MONOCYTES 7 % (0-8); MYELOCYTES 4 % (0-0); POLYS (SEG NEUTROPHILS) 58 % (16-70)
[2018-04-13] MEDS ORDERED: levETIRAcetam INJ 100 ML IV STA (12:47)
--- NOTE | 2018-04-13 12:49 | RADRPT ---
EXAM DATE: 04/13/2018 12:42 PM EDT AGE/SEX: 68 years / Male INDICATIONS: Cardiac arrest CLINICAL DATA: This is the patient's initial encounter. Patient reports that signs and symptoms have been present for 1 day and indicates a pain score of Nonresponsive. MEDICAL/SURGICAL HISTORY: Cardiovascular disease. Cerebrovascular disease. Renal disease. None. RADIATION DOSE: 58.76 CTDI (mGy) COMPARISON: [facility] [place], CT BRAIN W/O CONTRAST, 08/09/2016. . TECHNIQUE: CT of the head without contrast. Using automated exposure control and adjustment of the mA and/or kV according to patient size, radiation dose was kept as low as reasonably achievable to ob tain optimal diagnostic quality images. FINDINGS: Cerebrum: Redemonstration of encephalomalacia in the left posterior temporal and parietal mid convex ities. Moderate diffuse cerebral atrophy. The ventricles are normal for degree of atrophy. Moderate p eriventricular white matter hypodensities. No evidence of midline shift, mass lesion, hemorrhage or a cute infarction. No extraaxial fluid collections are seen. Posterior Fossa: Focal encephalomalacia in the right cerebellar hemisphere similar to prior exam. Th e 4th ventricle is midline. The cerebellopontine angle is unremarkable. Extracranial: The visualized portion of the orbits is intact. Skull: The calvaria is intact. No evidence of skull fracture. CONCLUSION: 1. No acute intracranial abnormality or significant interval change. 2. 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 3. Senescent changes with periventricular small vessel ischemic white matter demyelination. Electronically signed by: Francis Calle MD 04/13/2018 12:48 PM EDT
--- NOTE | 2018-04-13 12:55 | RADRPT ---
EXAM DATE: 04/13/2018 12:49 PM EDT AGE/SEX: 68 years / Male INDICATIONS: Cardiac arrest CLINICAL DATA: This is the patient's initial encounter. Patient reports that signs and symptoms have been present for 1 day and indicates a pain score of Nonresponsive. MEDICAL/SURGICAL HISTORY: Cardiovascular disease. Cerebrovascular disease. Renal disease. None. RADIATION DOSE: 22.63 CTDI (mGy) COMPARISON: No prior exams available for comparison. TECHNIQUE: Volumetric scanning was performed using a multi-row detector CT scanner during bolus infu walter of 50 ml Omnipaque 350 (iohexol) nonionic water-soluble contrast as a single exam dose. The chica a was post processed with a variety of visualization algorithms including full volume maximum intensi ty projection and sliding thin slab reformation. Using automated exposure control and adjustment of the mA and/or kV according to patient size, radiation dose was kept as low as reasonably achievable t o obtain optimal diagnostic quality images. FINDINGS: Pulmonary Arteries: No filling defects are seen in the pulmonary arteries out to the subsegmental ve ssels. The left and right pulmonary arteries are normal in diameter. Lung: There appears to be nonspecific interstitial infiltrates throughout the right lung. There also focal scattered areas of consolidation throughout the right lung. There is some parenchymal consolid ation in the posterior right upper lung. There are some small areas of parenchymal consolidation the right middle lobe. There is bibasilar atelectasis. There is some pleural thickening in both bases. No evidence of pneumothorax. Effusion: None. Mediastinum: No evidence of mediastinal or hilar adenopathy. The heart size is enlarged. There is an endotracheal tube in place. There is an NG tube in place. Other: The axilla is unremarkable. CONCLUSION: 1. No definite pulmonary embolism. 2. Nonspecific interstitial infiltrate throughout the entire right lung. 3. Scattered parenchymal infiltrates are seen throughout the right lung. 4. Bibasilar atelectasis. 5. Cardiomegaly. Electronically signed by: Murray Schulz MD 04/13/2018 12:54 PM EDT
[2018-04-13] MEDS: INSULIN ASPART SUPPLEMENTAL SCALE SQ SCH ×2 (13:00→17:13)
[2018-04-13] MEDS: ARTIFICIAL TEARS OPTH SOLN 15 ML BTL EACH EYE SCH ×2 (13:00→17:13)
[2018-04-13] MEDS ORDERED: NOREPINEPHRINE-DEXTROSE DRIP 250 ML IV PRN (13:00)
[2018-04-13] MEDS ORDERED: TERBUTALINE INJ 1 MG/ML AMP SQ PRN (13:00)
[2018-04-13] MEDS: SODIUM BICARBONATE 8.4% INJ 150 MEQ in WATER STERILE FOR INJ 850 ML IV SCH (13:40)
[2018-04-13] MEDS ORDERED: IOHEXOL 350 MG/ML 10 ML VIAL (for RAD DIAG) IVCONTRAST ONE (13:45)
[2018-04-13] MEDS ORDERED: SODIUM POLYSTYRENE SULFONATE SUSP 15 GM/60 ML CUP PO/NG SCH (14:00)
[2018-04-13] MEDS ORDERED: CALCIUM GLUCONATE INJ 2 GM in DEXTROSE 5% IN WATER 100ML INJ 100 ML IV ONE ×2 (14:00)
[2018-04-13 14:31] LABS: AMORPHOUS SEDIMENT, URINE FEW; BACTERIA, URINE OCC /hpf; BILIRUBIN, URINE NEG (NEG); BLOOD, URINE NEG (NEG); GLUCOSE,URINE NEG (NEG); HYALINE CAST, URINE 3 /lpf (RARE); KETONE, URINE NEG (NEG); MUCUS URINE FEW /lpf (OCC); NITRITE,URINE NEG (NEG); PH, URINE 5.5 (5.0-8.5); SQUAMOUS EPITHELIAL CELL URINE <1 /hpf (0-5); URINE COLOR YELLOW (YELLW/STRAW); URINE LEUKOCYTE ESTERASE NEG (NEG)
[2018-04-13] MEDS: RESP: ALBUTEROL 2.5 MG/IPRATROPIUM 0.5 MG NEB (SCH) NEB ×2 (14:32→20:56)
--- NOTE | 2018-04-13 14:34 | HHI.HP ---
[facility] Service Critical Care Medicine Primary Care Physician Unknown Admission Diagnosis PEA code/intubated Diagnosis: Chief Complaint: Cardiac arrest Travel History International Travel<30 Days: No Contact w/Intl Traveler <30 Da: No Traveled to Known Affected Are: No History of Present Illness 68-year-old male patient presents to the ER today brought in by EMS was a CODE BLUE, was in PEA arrest when they found him slumped in the car, apparently had just eaten at a restaurant and walked out to his car, and slumped over according to patient's . He was in PEA and was given 3 rounds of CPR and epinephrine. He arrives with bag valve mask in progress, EMS noted that he had taken a few gasps of breathing while they were on the ramp, and by the time he got into the ER room, he had a detectable pulse, perfusing rhythm seen on monitor with good blood pressure. He remained comatose with GCS 3 following ROSC and was intubated by ER physician for airway protection. When I evaluated patient he was comatose, orally intubated on mech ventilation. History obtained by reviewing records, d/w ER physician and patient's at bedside. Patient had significant diarrhea in ER. He was on antibiotics recently following his AV fistula palcement till 1 week before current presentation. He is followed at the [facility] for his care. PFSH Past Medical History Hx Anticoagulant Therapy: Yes Asthma: No Atrial Fibrillation: Yes Anxiety: Yes Depression: Yes Heart Rhythm Problems: Yes (afib) Cancer: No Cardiovascular Problems: Yes (afib) High Cholesterol: Yes Chest Pain: No Congestive Heart Failure: Yes COPD: Yes Cerebrovascular Accident: Yes Diabetes: Yes Diminished Hearing: No Endocrine: Yes Gastrointestinal Disorders: No Genitourinary: Yes Hypertension: Yes Immune Disorder: No Implanted Vascular Access Dvce: No Kidney Stones: No Musculoskeletal: No Neurologic: Yes (Neuropathy) Psychiatric: Yes Reproductive: No Respiratory: Yes Immunizations Current: No Renal Failure: No Seizures: Yes Sleep Apnea: No Thyroid Disease: No Past Surgical History Abdominal Surgery: Yes (HERNIA) Appendectomy: Yes Eye Surgery: Yes (LASER FOR CATARACT and back of eyes) Tonsillectomy: Yes Other Surgery: Yes Social History Alcohol Use: Yes (DAILY ) Tobacco Use: No Substance Use: No Allergies-Medications (Allergen,Severity, Reaction): Coded Allergies: No Known Allergies (Verified , 01/09/17) Reported Meds & Prescriptions Reported Meds & Active Scripts Active Reported Buspirone (Buspirone HCl) 15 Mg Tab 15 Mg PO BID Carbidopa-Levodopa 25-100 Mg Tab 1 Tab PO HS Carbidopa-Levodopa 25-100 Mg Tab 1 Tab PO Q8HR Digoxin 0.125 Mg Tab 0.125 Mg PO DAILY [Fiber Well Gummies ] 10 Grain PO DAILY [Mauricio Red] 750 Mg PO DAILY Aspirin EC Low Dose (Aspirin) 81 Mg Tabec 81 Mg PO DAILY Calcium Citrate + D3 Maximum Strength (Calcium Citrate-Vitamin D) 315-250 Mg- Unit Tab 2 Tab PO DAILY [place] Oil (Nutritional Supplements) 1 Cap Cap 1,080 Mg PO DAILY One-A-Day Mens (Multiple Vitamin) 1 Tab Tab 2 Tab PO DAILY Xalatan Opth Drops (Latanoprost) 0.005% Drops 1 Drop EACH EYE HS Ventolin Hfa 18 GM Inh (Albuterol Sulfate) 90 Mcg/Act Aer 2 Puff INH Q6H PRN Magnesium Oxide 420 Mg Tab 210 Mg PO DAILY [place] 4-Pack Inj (Albiglutide) 30 Mg Pfpen 30 Mg SQ Q7D Lantus Inj (Insulin Glargine) 100 Unit/Ml Inj 16 Units SQ HS Remeron (Mirtazapine) 15 Mg Tab 15 Mg PO HS Zoloft (Sertraline HCl) 100 Mg Tab 150 Mg PO DAILY Coumadin (Warfarin) 5 Mg Tab 2.5 Mg PO SUTUTHSA Take 1/2 tablet (2.5mg) daily on Tuesday,Tuesday, and Tuesday Coumadin (Warfarin) 5 Mg Tab 5 Mg PO MOWEFR Take 1 tablet (5mg) on daily on Tuesday,Tuesday and Tuesday Potassium Chloride ER (Potassium Chloride) 10 Meq Tab 10 Meq PO DAILY Lasix (Furosemide) 20 Mg Tab 20 Mg PO DAILY Coreg (Carvedilol) 25 Mg Tab 12.5 Mg PO BID Review of Systems ROS Limitations: Intubated Physical Exam Vital Signs Vital Signs Date Time Temp Pulse Resp B/P (MAP) Pulse Ox O2 Delivery O2 Flow Rate FiO2 04/13/18 12:30 95 100 04/13/18 12:06 100 04/13/18 11:58 54 12 93/63 (73) 100 Auto-Vent 100 5/24/18 11:18 100 50 04/13/18 10:47 67 12 100 Auto-Vent 100 04/13/18 10:30 99 100 04/13/18 10:27 98.9 88 12 135/77 (96) 95 04/13/18 10:22 100 Physical Exam HEENT/ Neuro: Encephalopathic, comatose, GCS 3, orally intubated, Pallor present , no icterus, tongue/ mucosa moist Neck: No JVD Chest/Pulm: on mech vent, good air entry bilaterally, no wheezing or crackles CVS: S1-S2 regular, no murmur GI/abdomen: soft, nontender, bowel sounds sluggish Extremities: warm bilaterally, no edema. AV fistula left forearm noted Laboratory Laboratory Tests Test 04/13/18 11:04 04/13/18 11:08 Blood Gas Puncture Site RT RADIAL Blood Gas Patient Temperature 98.6 Blood Gas HCO3 16 Blood Gas Base Excess -12.4 Blood Gas Oxygen Saturation 97 Arterial Blood pH 7.06 Arterial Blood Partial Pressure CO2 60 Arterial Blood Partial Pressure O2 394 Arterial Blood Oxygen Content 14.7 Arterial Blood Carboxyhemoglobin 1.0 Arterial Blood Methemoglobin 1.0 Blood Gas Hemoglobin 10.0 Oxygen Delivery Device VENTILATOR Blood Gas Ventilator Setting SEE COMMENTS Blood Gas Inspired Oxygen 100 White Blood Count 5.7 Red Blood Count 2.81 Hemoglobin 10.1 Hematocrit 32.0 Mean Corpuscular Volume 113.8 Mean Corpuscular Hemoglobin 35.9 Mean Corpuscular Hemoglobin Concent 31.6 Red Cell Distribution Width 16.4 Platelet Count 116 Mean Platelet Volume 10.0 Neutrophils (%) (Auto) 68.3 Lymphocytes (%) (Auto) 21.3 Monocytes (%) (Auto) 6.5 Eosinophils (%) (Auto) 3.0 Basophils (%) (Auto) 0.9 Neutrophils # (Auto) 3.9 Lymphocytes # (Auto) 1.2 Monocytes # (Auto) 0.4 Eosinophils # (Auto) 0.2 Basophils # (Auto) 0.1 CBC Comment AUTO DIFF Differential Total Cells Counted 100 Neutrophils % (Manual) 58 Band Neutrophils % 8 Lymphocytes % 18 Monocytes % 7 Eosinophils % 3 Basophils % 1 Neutrophils # (Manual) 4.0 Metamyelocytes 1 Myelocytes 4 Differential Comment FINAL DIFF MANUAL Platelet Estimate LOW Platelet Morphology Comment NORMAL Prothrombin Time 23.9 Prothromb Time International Ratio 2.4 Activated Partial Thromboplast Time 29.7 Blood Urea Nitrogen 48 Creatinine 3.12 Random Glucose 164 Total Protein 7.1 Albumin 3.1 Calcium Level 8.2 Magnesium Level 2.1 Alkaline Phosphatase 82 Aspartate Amino Transf (AST/SGOT) 253 Alanine Aminotransferase (ALT/SGPT) 27 Total Bilirubin 0.6 Sodium Level 140 Potassium Level 5.6 Chloride Level 111 Carbon Dioxide Level 16.0 Anion Gap 13 Estimat Glomerular Filtration Rate 20 Total Creatine Kinase 72 Troponin I LESS THAN 0.02 Date/Time Source Procedure Growth Status 04/13/18 13:30 Blood Peripheral Aerobic Blood Culture Pending Received 04/13/18 13:30 Blood Peripheral Anaerobic Blood Culture Pending Received Result Diagram: 04/13/18 1108 04/13/18 [address] Angiography 04/13/18 1130 Signed Impressions: CONCLUSION: 1. No definite pulmonary embolism. 2. Nonspecific interstitial infiltrate throughout the entire right lung. 3. Scattered parenchymal infiltrates are seen throughout the right lung. 4. Bibasilar atelectasis. 5. Cardiomegaly. Head CT 04/13/18 1026 Signed Impressions: CONCLUSION: 1. No acute intracranial abnormality or significant interval change. 2. Old infarcts in the left temporoparietal mid convexities and right cerebell um. 3. Senescent changes with periventricular small vessel ischemic white matter d emyelination. Chest X-Ray 04/13/18 1023 Signed Impressions: CONCLUSION: Endotracheal tube and nasogastric tube in good position. Bilateral airspace dis ease as above without effusion or pneumothorax. Caprini VTE Risk Assessment Caprini VTE Risk Assessment: Mod/High Risk (score >= 2) Caprini Risk Assessment Model Point Value = 1 Point Value = 2 Point Value = 3 Point Value = 5 Age 41-60 Minor surgery BMI > 25 kg/m2 Swollen legs Varicose veins or History of unexplained or recurrent spontaneous Oral contraceptives or hormone replacement Sepsis (< 1 month) Serious lung disease, including pneumonia (< 1 month) Abnormal pulmonary function Acute myocardial infarction Congestive heart failure (< 1 month) History of inflammatory bowel disease Medical patient at bed rest Age 61-74 Arthroscopic surgery Major open surgery (> 45 min) Laparoscopic surgery (> 45 min) Malignancy Confined to bed (> 72 hours) Immobilizing plaster cast Central venous access Age >= 75 History of VTE Family history of VTE Factor V Leiden Prothrombin [id number] Lupus anticoagulant Anticardiolipin antibodies Elevated serum homocysteine Heparin-induced thrombocytopenia Other congenital or acquired thrombophilia Stroke (< 1 month) Elective arthroplasty Hip, pelvis, or leg fracture Acute spinal cord injury (< 1 month) Prophylaxis Regimen Total Risk Factor Score Risk Level Prophylaxis Regimen 0-1 Low Early ambulation 2 Moderate Order ONE of the following: *Sequential Compression Device (SCD) *Heparin 5000 units SQ BID 3-4 Higher Order ONE of the following medications: *Heparin 5000 units SQ TID *Enoxaparin/Lovenox 40 mg SQ daily (WT < 150 kg, CrCl > 30 mL/min) *Enoxaparin/Lovenox 30 mg SQ daily (WT < 150 kg, CrCl > 10-29 mL/min) *Enoxaparin/Lovenox 30 mg SQ BID (WT < 150 kg, CrCl > 30 mL/min) AND/OR *Sequential Compression Device (SCD) 5 or more Highest Order ONE of the following medications: *Heparin 5000 units SQ TID (Preferred with Epidurals) *Enoxaparin/Lovenox 40 mg SQ daily (WT < 150 kg, CrCl > 30 mL/min) *Enoxaparin/Lovenox 30 mg SQ daily (WT < 150 kg, CrCl > 10-29 mL/min) *Enoxaparin/Lovenox 30 mg SQ BID (WT < 150 kg, CrCl > 30 mL/min) AND *Sequential Compression Device (SCD) Assessment and Plan Assessment and Plan 68-year-old male with: Out of hospital cardiac arrest-PEA status post CPR Anoxic encephalopathy Myoclonic seizures Hyperkalemia CKD History of strokes Metabolic acidosis H/o Afib H/o CHF H/o COPD H/O ? Parkinson's disease Plan: Neuro: Off sedatives currently. Will use propofol if needed for sedation. Ativan 2 mg IV 1 given for myoclonic jerking. EEG ordered. Head CT negative for bleed. Neurology consult requested. Cardiovascular: Watch for hypotension. Serial cardiac enzymes. 2D echo to assess LV function. Check BNP. Continue anticoagulation with coumadin for Afib. Pulmonary: Continue mechanical ventilation, vent bundle, bronchodilators as needed. GI/liver: N.p.o. currently. Will use OG tube for medications and start tube feeds in a.m. if hemodynamically stable. Diarrhea noted. Patient was on antibiotics recently for AV fistula placement. Will check stool for C. difficile. Renal/: IV hydration, strict intake output, monitor and replete electrolytes, follow BUN/creatinine. Patient is followed at the [facility] for CKD and had a recent AV fistula placed for in preparation for hemodialysis. Nephrology consult requested. Ordered glucose/insulin/bicarb/calcium and Kayexalate for hyperkalemia. Ordered bicarb drip ID: Pancultures ordered. Stool for C. difficile pending. Endocrine: SSI for glycemic control Heme: Follow CBC and coags. On anticoagulation with Coumadin which will be continued. Follow INR Prophylaxis: Pepcid/SCDs. On anticoagulation with Coumadin Condition critical Discussed extensively with patient's at bedside. She wishes to change CODE STATUS to DNR in accordance to patient's known wishes. Time spent on critical care excluding procedures 70 minutes Haja Barahona MD April 13, 2018 14:34
[2018-04-13] MEDS: PROPOFOL 1000 MG/100 ML IV PRN ×3 (15:00→21:57)
[2018-04-13] MEDS: FAMOTIDINE 20 MG TAB TUBE SCH ×2 (15:31→19:53)
--- NOTE | 2018-04-13 15:51 | PD.CONS ---
HPI Service Nephrology Consult Requested By Dr. Barahona Reason for Consult Chronic kidney disease and acute renal failure Primary Care Physician Unknown History of Present Illness Patient is a 68-year-old white male with a history of diabetes, atrial fibrillation, apparently he was eating in a restaurant and then came out and while sitting in the car he slumped over and experienced cardiac arrest, initially has PEA and was resuscitated in the field, he has another cardiac arrest and continued to require resuscitation efforts intubation and subsequent stabilization, currently he is on the ventilator with a pulse and blood pressure , etiology of PEA is unclear, patient is having jerking movements, he has a recent AV fistula placed in the left arm, apparently has chronic kidney disease approaching end-stage renal disease, try to contact family no one is available. Patient has significant diarrhea in the ER, [facility] Review of Systems ROS Limitations: Clinical Condition Past Family Social History Allergies: Coded Allergies: No Known Allergies (Verified Allergy, Unknown, 04/13/18) Past Medical History Diabetes Chronic kidney disease Atrial fibrillation Hyperlipidemia Neuropathy Syncope Glaucoma Hypertension CVA Past Surgical History Tonsillectomy Appendectomy Hernia repair Cataract Reported Medications Reported Meds & Active Scripts Active Reported Buspirone (Buspirone HCl) 15 Mg Tab 15 Mg PO BID Carbidopa-Levodopa 25-100 Mg Tab 1 Tab PO HS Carbidopa-Levodopa 25-100 Mg Tab 1 Tab PO Q8HR Digoxin 0.125 Mg Tab 0.125 Mg PO DAILY [Fiber Well Gummies ] 10 Grain PO DAILY [Mauricio Red] 750 Mg PO DAILY Aspirin EC Low Dose (Aspirin) 81 Mg Tabec 81 Mg PO DAILY Calcium Citrate + D3 Maximum Strength (Calcium Citrate-Vitamin D) 315-250 Mg- Unit Tab 2 Tab PO DAILY [place] Oil (Nutritional Supplements) 1 Cap Cap 1,080 Mg PO DAILY One-A-Day Mens (Multiple Vitamin) 1 Tab Tab 2 Tab PO DAILY Xalatan Opth Drops (Latanoprost) 0.005% Drops 1 Drop EACH EYE HS Ventolin Hfa 18 GM Inh (Albuterol Sulfate) 90 Mcg/Act Aer 2 Puff INH Q6H PRN Magnesium Oxide 420 Mg Tab 210 Mg PO DAILY [place] 4-Pack Inj (Albiglutide) 30 Mg Pfpen 30 Mg SQ Q7D Lantus Inj (Insulin Glargine) 100 Unit/Ml Inj 16 Units SQ HS Remeron (Mirtazapine) 15 Mg Tab 15 Mg PO HS Zoloft (Sertraline HCl) 100 Mg Tab 150 Mg PO DAILY Coumadin (Warfarin) 5 Mg Tab 2.5 Mg PO SUTUTHSA Take 1/2 tablet (2.5mg) daily on Tuesday,Tuesday, and Tuesday Coumadin (Warfarin) 5 Mg Tab 5 Mg PO MOWEFR Take 1 tablet (5mg) on daily on Tuesday,Tuesday and Tuesday Potassium Chloride ER (Potassium Chloride) 10 Meq Tab 10 Meq PO DAILY Lasix (Furosemide) 20 Mg Tab 20 Mg PO DAILY Coreg (Carvedilol) 25 Mg Tab 12.5 Mg PO BID Active Ordered Medications Current Medications Medications (Trade) Dose Ordered Sig/Iram Route Start Time Stop Time Status Last Admin (NS Flush) 2 ml UNSCH PRN IV FLUSH 04/13/18 12:15 (NS Flush) 2 ml BID IV FLUSH 04/13/18 21:00 (Duoneb Neb) 1 ampule Q6HR NEB NEB 04/13/18 12:15 04/13/18 14:32 (Duoneb Neb) 1 ampule Q4HR NEB PRN INH 04/13/18 12:15 (Tears Naturale Opth Soln) 1 drop TID EACH EYE 04/13/18 13:00 (Peridex 0.12% Liq) 15 ml BID@08,20 MT 04/13/18 20:00 (Pepcid) 10 mg BID TUBE 04/13/18 13:00 04/13/18 15:31 ([facility] [place] [facility]) 1 Q361D XX 04/13/18 12:15 (Chlorhexidine 2% Cloth) 3 pack Taper DAILY@04 TOP 04/14/18 04:00 04/10/19 03:59 (Chlorhexidine 2% Cloth) 3 pack UNSCH PRN TOP 04/13/18 12:15 (NovoLOG SUPPLEMENTAL SCALE) 1 Q6HR SQ 04/13/18 13:00 Sodium Bicarbonate 150 meq/Sterile Water 1,000 ml @ 100 mls/hr Q10H IV 04/13/18 14:00 04/13/18 13:40 Levetriacetam 100 ml @ 400 mls/hr Q12HR IV 04/13/18 21:00 Norepinephrine Bitartrate 250 ml @ 7.5 mls/hr TITRATE PRN IV 04/13/18 13:00 (Brethine Inj) 1 mg UNSCH PRN SQ 04/13/18 13:00 Propofol 100 ml @ 3 mls/hr TITRATE PRN IV 04/13/18 15:00 Family History Patient is Social History Denies smoking or alcohol use Physical Exam Vital Signs Vital Signs Date Time Temp Pulse Resp B/P (MAP) Pulse Ox O2 Delivery O2 Flow Rate FiO2 04/13/18 12:30 95 100 04/13/18 12:06 100 04/13/18 11:58 54 12 93/63 (73) 100 Auto-Vent 100 04/13/18 11:18 100 50 04/13/18 10:47 67 12 100 Auto-Vent 100 04/13/18 10:30 99 100 04/13/18 10:27 98.9 88 12 135/77 (96) 95 04/13/18 10:22 100 Physical Exam GENERAL: Well-nourished, well-developed intubated patient. SKIN: Warm and dry. HEAD: Normocephalic. EYES: No scleral icterus. No injection or drainage. NECK: Supple, trachea midline. No JVD or lymphadenopathy. CARDIOVASCULAR: irregular RESPIRATORY: Breath sounds equal bilaterally. No accessory muscle use. GASTROINTESTINAL: Abdomen soft, non-tender, nondistended. EXTREMITIES: No cyanosis, 1+ edema. NEUROLOGICAL: Comatose, at times he has jerky movement Laboratory Laboratory Tests Test 04/13/18 11:04 04/13/18 11:08 04/13/18 14:00 Blood Gas Puncture Site RT RADIAL Blood Gas Patient Temperature 98.6 Blood Gas HCO3 16 Blood Gas Base Excess -12.4 Blood Gas Oxygen Saturation 97 Arterial Blood pH 7.06 Arterial Blood Partial Pressure CO2 60 Arterial Blood Partial Pressure O2 394 Arterial Blood Oxygen Content 14.7 Arterial Blood Carboxyhemoglobin 1.0 Arterial Blood Methemoglobin 1.0 Blood Gas Hemoglobin 10.0 Oxygen Delivery Device VENTILATOR Blood Gas Ventilator Setting SEE COMMENTS Blood Gas Inspired Oxygen 100 White Blood Count 5.7 Red Blood Count 2.81 Hemoglobin 10.1 Hematocrit 32.0 Mean Corpuscular Volume 113.8 Mean Corpuscular Hemoglobin 35.9 Mean Corpuscular Hemoglobin Concent 31.6 Red Cell Distribution Width 16.4 Platelet Count 116 Mean Platelet Volume 10.0 Neutrophils (%) (Auto) 68.3 Lymphocytes (%) (Auto) 21.3 Monocytes (%) (Auto) 6.5 Eosinophils (%) (Auto) 3.0 Basophils (%) (Auto) 0.9 Neutrophils # (Auto) 3.9 Lymphocytes # (Auto) 1.2 Monocytes # (Auto) 0.4 Eosinophils # (Auto) 0.2 Basophils # (Auto) 0.1 CBC Comment AUTO DIFF Differential Total Cells Counted 100 Neutrophils % (Manual) 58 Band Neutrophils % 8 Lymphocytes % 18 Monocytes % 7 Eosinophils % 3 Basophils % 1 Neutrophils # (Manual) 4.0 Metamyelocytes 1 Myelocytes 4 Differential Comment FINAL DIFF MANUAL Platelet Estimate LOW Platelet Morphology Comment NORMAL Prothrombin Time 23.9 Prothromb Time International Ratio 2.4 Activated Partial Thromboplast Time 29.7 Blood Urea Nitrogen 48 Creatinine 3.12 Random Glucose 164 Total Protein 7.1 Albumin 3.1 Calcium Level 8.2 Magnesium Level 2.1 Alkaline Phosphatase 82 Aspartate Amino Transf (AST/SGOT) 253 Alanine Aminotransferase (ALT/SGPT) 27 Total Bilirubin 0.6 Sodium Level 140 Potassium Level 5.6 Chloride Level 111 Carbon Dioxide Level 16.0 Anion Gap 13 Estimat Glomerular Filtration Rate 20 Total Creatine Kinase 72 Troponin I LESS THAN 0.02 Urine Color YELLOW Urine Turbidity HAZY Urine pH 5.5 Urine Specific [place] 1.009 Urine Protein 100 Urine Glucose (UA) NEG Urine Ketones NEG Urine Occult Blood NEG Urine Nitrite NEG Urine Bilirubin NEG Urine Urobilinogen LESS THAN 2.0 Urine Leukocyte Esterase NEG Urine RBC LESS THAN 1 Urine WBC 1 Urine Squamous Epithelial Cells <1 Urine Amorphous Sediment FEW Urine Bacteria OCC Urine Hyaline Casts 3 Urine Mucus FEW Microscopic Urinalysis Comment CATH-CULTURE IND Date/Time Source Procedure Growth Status 04/13/18 13:30 Blood Peripheral Aerobic Blood Culture Pending Received 04/13/18 13:30 Blood Peripheral Anaerobic Blood Culture Pending Received 04/13/18 14:00 Urine Catheterized Urine Urine Culture Pending Received Result Diagram: 04/13/18 1108 04/13/[address] Angiography 04/13/18 1130 Signed Impressions: CONCLUSION: 1. No definite pulmonary embolism. 2. Nonspecific interstitial infiltrate throughout the entire right lung. 3. Scattered parenchymal infiltrates are seen throughout the right lung. 4. Bibasilar atelectasis. 5. Cardiomegaly. Head CT 04/13/18 1026 Signed Impressions: CONCLUSION: 1. No acute intracranial abnormality or significant interval change. 2. Old infarcts in the left temporoparietal mid convexities and right cerebell um. 3. Senescent changes with periventricular small vessel ischemic white matter d emyelination. Chest X-Ray 04/13/18 1023 Signed Impressions: CONCLUSION: Endotracheal tube and nasogastric tube in good position. Bilateral airspace dis ease as above without effusion or pneumothorax. Assessment and Plan Problem List: (1) Acute renal failure ICD Codes: N17.9 - Acute kidney failure, unspecified Plan: Due to cardiogenic shock/cardiac/PEA Continue with sodium bicarbonate drip Patient received contrast for pulmonary embolism evaluation CT of the chest was done Monitor BMP He does have AV fistula in left arm Avoid further dye studies. (2) CKD (chronic kidney disease) stage 4, GFR 15-29 ml/min ICD Codes: N18.4 - Chronic kidney disease, stage 4 (severe) Status: Chronic Plan: He has AV fistula in the left forearm (3) Acidosis, metabolic ICD Codes: E87.2 - Acidosis Plan: Bicarbonate drip initiated (4) Hyperkalemia ICD Codes: E87.5 - Hyperkalemia Plan: Given calcium gluconate, D50, insulin, Kayexalate, sodium bicarbonate (5) PEA (Pulseless electrical activity) ICD Codes: I46.9 - Cardiac arrest, cause unspecified Status: Acute Plan: Unclear etiology (6) Endotracheally intubated ICD Codes: Z97.8 - Presence of other specified devices Status: Acute Plan: Continue to monitor along with critical care (7) DM (diabetes mellitus) ICD Codes: E11.9 - Type 2 diabetes mellitus without complications Status: Acute Plan: Follow blood glucose level Sai Powell MD April 13, 2018 15:51
[2018-04-13] MEDS ORDERED: ASPIRIN 325 MG TAB OG-TUBE ONE (16:45)
[2018-04-13] MEDS ORDERED: hydrALAZINE HCL 20 MG/ML VIAL IV PUSH PRN (16:45)
[2018-04-13] MEDS ORDERED: cloNIDine HCL 0.2 MG TAB OG-TUBE PRN (17:15)
[2018-04-13] MEDS ORDERED: cloNIDine HCL 0.2 MG TAB OG-TUBE ONE (17:15)
[2018-04-13] MEDS: SODIUM CHLORIDE 0.9% FLUSH 10 ML FLUSH IV FLUSH SCH (19:53)
[2018-04-13] MEDS: CARVEDILOL 12.5 MG TAB PO SCH (19:53)
[2018-04-13] MEDS: levETIRAcetam INJ 100 ML IV SCH (19:53)
[2018-04-13] MEDS: CHLORHEXIDINE 0.12% (ORAL KIT) 15 ML CUP MT SCH (19:54)
[2018-04-13 20:03] LABS: TROPONIN I 0.09 NG/ML (0.02-0.05)
[2018-04-13] MEDS: MIDAZOLAM 50 MG/NS 50 ML DRIP Premix IV PRN (20:34)
--- NOTE | 2018-04-13 21:43 | MB ---
cc: Fer Mccormack MD, PhD Fer Mccormack MD PhD DATE: 04/13/2018 REASON FOR CONSULTATION: Encephalopathy. HISTORY OF PRESENT ILLNESS: Mr. Chase is a 68-year-old man who had a cardiac arrest earlier today. EMS was summoned and resuscitated the patient. Since admission, he has been intubated and nonresponsive. He developed generalized myoclonic activity nearly continuously. No focal deficits are noted. He has been started on a Versed drip and the myoclonus has subsided. PHYSICAL EXAMINATION: VITAL SIGNS: His blood pressure is 182/106, pulse 88, temperature 97.6 degrees. Higher cortical function - non-responsive to sternal rub. Cranial nerves - the pupils are miotic 1 mm, symmetric, sluggishly reactive. Extraocular movements are minimal to doll's eyes maneuver. There is no ciliospinal reflex. On motor exam, there is no posturing, no withdrawal to painful stimuli and no localization. Reflexes are 1+ and symmetric with no Babinski sign. IMAGING STUDIES: CT of the brain: No acute change. Old stroke is identified left temporoparietal area and right cerebellum. LABORATORY DATA: The white count is 5700, hemoglobin 10.1, hematocrit 32%, platelets 116,000. PT 23.9, INR 2.4, APTT 29.7. IMPRESSION: Significant hypoxic encephalopathy with myoclonus. I did look at the electroencephalogram, which was done earlier today. There is generalized slowing, relatively low-amplitude activity. There are no epileptiform discharges. There is no sign of subclinical status. RECOMMENDATIONS: Continue current dose of Versed drip as well as Keppra. We will obtain an MRI of the brain as well, which would be helpful prognostically to assess the degree of encephalopathy. Fer Mccormack MD, PhD TOY/ , 09:29 PM , 09:41 PM
[2018-04-14] VITALS (16 sets, daily range): BP systolic 92–154; BP diastolic 62–102; PULSE 96–114; RESP 20–22; TEMP 97.4–98.2; O2SAT 92–100
[2018-04-14] MEDS: SODIUM BICARBONATE 8.4% INJ 150 MEQ in WATER STERILE FOR INJ 850 ML IV SCH (00:50)
[2018-04-14] MEDS: PROPOFOL 1000 MG/100 ML IV PRN ×6 (00:58→16:48)
[2018-04-14 03:04] LABS: BASOPHIL % 0.5 % (0.0-2.0); EOSINOPHIL # 0.1 TH/MM3 (0-0.4); HEMATOCRIT 23.5 % (39.0-51.0); HEMOGLOBIN 8.1 GM/DL (13.0-17.0); LYMPHOCYTE # 0.8 TH/MM3 (1.0-4.8); MEAN CELL VOLUME 107.3 FL (80.0-100.0); MEAN CORPUSCULAR HEMOGLOBIN 36.9 PG (27.0-34.0); MEAN CORPUSCULAR HGB CONC 34.4 % (32.0-36.0); MEAN PLATELET VOLUME 9.8 FL (7.0-11.0); MONO % 11.5 % (0.0-8.0); MONOCYTE # 0.6 TH/MM3 (0-0.9); PLATELET COUNT 99 TH/MM3 (150-450); RED BLOOD COUNT 2.19 MIL/MM3 (4.50-5.90); RED CELL DISTRIBUTION WIDTH 15.5 % (11.6-17.2); WHITE BLOOD COUNT 5.5 TH/MM3 (4.0-11.0)
[2018-04-14 03:14] LABS: INTERNATIONAL NORMALIZED RATIO 2.6 RATIO; PROTHROMBIN TIME - PATIENT 25.9 SEC (9.8-11.6)
[2018-04-14 03:31] LABS: TROPONIN I 0.07 NG/ML (0.02-0.05)
[2018-04-14 03:32] LABS: ALBUMIN 2.5 GM/DL (3.4-5.0); BICARBONATE 27.2 MEQ/L (21.0-32.0); CALCIUM 7.3 MG/DL (8.5-10.1); CALCIUM-PROTEIN CORRECTED 8.1 MG/DL (8.5-10.1); CREATININE 3.16 MG/DL (0.60-1.30); TOTAL BILIRUBIN ADULT 0.4 MG/DL (0.2-1.0); TOTAL PROTEIN 5.7 GM/DL (6.4-8.2)
[2018-04-14] MEDS: RESP: ALBUTEROL 2.5 MG/IPRATROPIUM 0.5 MG NEB (SCH) NEB ×3 (03:51→16:07)
[2018-04-14] MEDS ORDERED: CHLORHEXIDINE GLUCONATE 2 % 1 PACK (2 CLOTHS) TOP SCH (04:00)
[2018-04-14 04:21] LABS: BANDS 27 % (0-6); LYMPHOCYTES 10 % (9-44); METAMYELOCYTES 1 % (0-1); MONOCYTES 4 % (0-8); NEUTROPHIL # MANUAL DIFF 4.6 TH/MM3 (1.8-7.7); POLYS (SEG NEUTROPHILS) 56 % (16-70)
[2018-04-14] MEDS: INSULIN ASPART SUPPLEMENTAL SCALE SQ SCH ×4 (06:00→18:00)
[2018-04-14] MEDS: MIDAZOLAM 50 MG/NS 50 ML DRIP Premix IV PRN ×4 (06:02→16:49)
--- NOTE | 2018-04-14 07:20 | EKG ---
Date Performed: 04/13/2018 Time Performed: 11:09:52 PTAGE: 68 years EKG: ATRIAL FIBRILLATION WITH SLOW VENTRICULAR RESPONSE MARKED LEFT AXIS DEVIATION LOW QRS VOLTA GE IN EXTREMITY LEADS ABNORMAL ECG PREVIOUS TRACING : 04/13/2018 10.33 DOCTOR: Felix Mullins Interpretating Date/Time 04/14/2018 07:17:30
--- NOTE | 2018-04-14 07:21 | EKG ---
Date Performed: 04/13/2018 Time Performed: 10:33:58 PTAGE: 68 years EKG: ATRIAL FIBRILLATION BORDERLINE LEFT AXIS DEVIATION LOW QRS VOLTAGE IN EXTREMITY LEADS ABNOR MAL RHYTHM ECG INTERPRETATION BASED ON A DEFAULT AGE OF 40 YEARS PREVIOUS TRACING : 01/09/2017 17.27 DOCTOR: Felix Mullins Interpretating Date/Time 04/14/2018 07:19:13
[2018-04-14] MEDS: FAMOTIDINE 20 MG TAB TUBE SCH (07:27)
[2018-04-14] MEDS: CHLORHEXIDINE 0.12% (ORAL KIT) 15 ML CUP MT SCH (07:27)
[2018-04-14] MEDS: ARTIFICIAL TEARS OPTH SOLN 15 ML BTL EACH EYE SCH ×3 (07:27→18:00)
[2018-04-14] MEDS: SODIUM CHLORIDE 0.9% FLUSH 10 ML FLUSH IV FLUSH SCH (07:27)
[2018-04-14] MEDS: levETIRAcetam INJ 100 ML IV SCH (07:27)
[2018-04-14] MEDS: CARVEDILOL 12.5 MG TAB PO SCH (08:40)
[2018-04-14] MEDS ORDERED: FUROSEMIDE 20 MG TAB PO SCH (09:00)
--- NOTE | 2018-04-14 09:44 | RADRPT ---
EXAM DATE: 04/14/2018 8:35 AM EDT AGE/SEX: 68 years / Male INDICATIONS: Evaluate respiratory failure CLINICAL DATA: This is the patient's subsequent encounter. Patient reports that signs and symptoms h ave been present for 2 days and indicates a pain score of Nonresponsive. MEDICAL/SURGICAL HISTORY: Hypertension. Non-responsive. COMPARISON: [facility], CHEST SINGLE AP, 04/13/2018. . FINDINGS: Support devices remain in stable position. The lungs remain hypoaerated. Mild interstitial infiltrate in right lung is less conspicuous. There i s subsegmental airspace disease with air bronchograms in the right base which has developed since the prior study. Left lung remains clear. Heart remains moderately enlarged CONCLUSION: 1. New subsegmental consolidating infiltrate in the right lung base 2. Persistent but less conspicuous right upper lobe interstitial infiltrate. 3. Stable supportive devices. Electronically signed by: Jesus Mcmanus MD 04/14/2018 9:42 AM EDT
--- NOTE | 2018-04-14 09:58 | HHI.NPPN ---
Subjective History of Present Illness 68 year old with Cardiac arrest, CKD, anoxic encephalopathy Objective Data Data Vital Signs Date Time Temp Pulse Resp B/P (MAP) Pulse Ox O2 Delivery O2 Flow Rate FiO2 04/14/18 08:24 96 90 04/14/18 06:00 101 04/14/18 04:00 98.0 96 20 102/71 (81) 99 04/14/18 04:00 75 04/14/18 04:00 96 04/14/18 03:52 99 45 04/14/18 02:00 96 04/14/18 01:12 100 55 04/14/18 00:00 98.2 100 20 154/102 (119) 100 04/14/18 00:00 100 04/14/18 00:00 75 04/13/18 22:00 93 04/13/18 20:57 100 65 04/13/18 20:00 89 04/13/18 20:00 75 04/13/18 20:00 98.0 89 26 198/106 (136) 100 04/13/18 18:00 88 04/13/18 18:00 182/106 (131) 04/13/18 17:36 100 75 04/13/18 16:08 100 04/13/18 16:00 90 04/13/18 16:00 97.6 87 22 167/94 (118) 100 04/13/18 15:00 167/94 (118) 04/13/18 14:00 164/96 (118) 04/13/18 13:00 97.7 65 23 151/74 (99) 100 04/13/18 12:30 95 100 04/13/18 12:06 100 04/13/18 11:58 54 12 93/63 (73) 100 Auto-Vent 100 04/13/18 11:18 100 50 04/13/18 10:47 67 12 100 Auto-Vent 100 04/13/18 10:30 99 100 04/13/18 10:27 98.9 88 12 135/77 (96) 95 04/13/18 10:22 100 -: 04/14/18 0250 04/14/18 0250 Microbiology 04/13/18 Aerobic Blood Culture, Received Pending 04/13/18 Anaerobic Blood Culture, Received Pending 04/13/18 Aerobic Blood Culture, Received Pending 04/13/18 Anaerobic Blood Culture, Received Pending 04/13/18 Urine Culture, Received Pending Physical Exam General Appearance: Well Developed Neck Neck Exam: Neck Supple Pulmonary Resp Exam: Rhonchi, Decreased Bases Cardiology CV Exam: Irregular Gastrointestinal/Abdomen GI Exam: Soft, Non-Tender, Positive Bowel Movement Extremeties Extremities Exam: Trace Edema Neurologic Neuro Exam: Unresponsive, Comatose Assessment/Plan Problem List: (1) Acute renal failure ICD Codes: N17.9 - Acute kidney failure, unspecified Plan: Due to cardiogenic shock/cardiac/PEA Continue with sodium bicarbonate drip Patient received contrast for pulmonary embolism evaluation CT of the chest was done Monitor BMP He does have AV fistula in left arm Avoid further dye studies. Non oliguric Prognosis poor anoxic encephalopathy d/w Dr. Barahona (2) CKD (chronic kidney disease) stage 4, GFR 15-29 ml/min ICD Codes: N18.4 - Chronic kidney disease, stage 4 (severe) Status: Chronic Plan: He has AV fistula in the left forearm (3) Acidosis, metabolic ICD Codes: E87.2 - Acidosis Plan: on Bicarbonate drip (4) Hyperkalemia ICD Codes: E87.5 - Hyperkalemia Status: Resolved Plan: on sodium bicarbonate (5) PEA (Pulseless electrical activity) ICD Codes: I46.9 - Cardiac arrest, cause unspecified Status: Acute Plan: Unclear etiology (6) Endotracheally intubated ICD Codes: Z97.8 - Presence of other specified devices Status: Acute Plan: Continue to monitor along with critical care (7) DM (diabetes mellitus) ICD Codes: E11.9 - Type 2 diabetes mellitus without complications Status: Acute Plan: Follow blood glucose level Sai Powell MD April 14, 2018 09:58
[2018-04-14] MEDS ORDERED: SODIUM BICARBONATE 8.4% INJ 150 MEQ in WATER STERILE FOR INJ 850 ML IV SCH (10:00)
--- NOTE | 2018-04-14 10:10 | PD.CONS ---
Consult Service Palliative Care Consult Requested By [facility] Primary Care Physician Unknown Reason for Consultation a. To assist with evaluation and management of symptoms including:pain, dyspnea b. To assist medical decision maker(s) with: better understanding of current medical conditions; weighing benefits/burdens of medical treatment options; making medical treatment decisions. HPI History of Present Illness Patient is a 68-year-old who was brought in via EMS as a CODE BLUE. Patient was in PEA arrests when they found him slumped in a car. Is reported that patient had just eaten at a restaurant and walked out to his car slumped over according to patient's . Patient was in PEA was given 3 rounds of CPR and epinephrine. He arrives with bag valve mask and progress. He subsequently, by the time he got into the ER had detectable pulse. Patient was intubated in the ER. In the ER: * Temperature is 98.9, pulse is 88, respirations 12, blood pressure is 135/77, pulse ox is 95%, FiO2 of 100 * WBC is 5.7, hemoglobin is 10.1, hematocrit 33.0, platelets 116 * Sodium is 140, potassium is 5.6, chloride is 111, bicarb is 16, BUN is 48, creatinine 3.12 * Troponin is less than 0.02, then 0.09, then 0.07 * AST is 253 ALT is 27, alk phos is 82 * You a is negative for nitrites or leukocyte esterase, urine protein is high, urine culture pending * Blood culture pending * Chest x-ray shows bilateral airspace disease, no pneumo * Head CT shows no acute intracranial abnormality or significant interval change. 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 There are senescent changes with periventricular small vessel ischemic white matter * CTA shows no definite PE, nonspecific interstitial infiltrate throughout the entire right lung field. Scattered parenchymal infiltrates seen in the right lung field. Bibasilar atelectasis and cardiomegaly Is reported patient has significant diarrhea in the ER and had been on antibiotics recently following an AV fistula placement. Patient was transferred to the ICU critical medicine seen and evaluated and treated patient. Nephrology was also consulted 04/14/2018. Neurology was consulted for encephalopathy. Patient reported to have generalized myoclonic activity nearly continuous. Patient subsequently started on Versed drip and myoclonus has subsided. Neurologist found patient to have significant hypoxic encephalopathy with myoclonus. EEG was reported to be generalized slowing, relatively low amplitude activity. Dr. Mccormack will obtain MRI of the brain which will be helpful prognostically to assess degree of encephalopathy. Palliative care was consulted to assist with goals of therapy as patient may have significant encephalopathy. Patient on my visit is unresponsive, sedated and intubated. I spoke to at bedside. Discuss patients current clinical situation, review eeg and MRI results. Spoke about concerns about encephalopathy from anoxia, dependence on termite control servicer life support, trach, vent, dialysis etc. Advance care planning 20 min/ reaffimrs DNR. endorse patient would not have wanted any of this. She is amenable to give over the weekend to see if patient rebounds, however if patient does not, she is open for patient to transition to comfort measures. Function/Cognitive Trajectory He is dyspneic on exertion. Use MDI inhalers, was recently tested to get home O2, but did not qualify. Review of Systems ROS Limitations: Clinical Condition Constitutional: COMPLAINS OF: Fatigue Endocrine: DENIES: Heat/cold intolerance Eyes: COMPLAINS OF: Vision loss (legally blind), DENIES: Diplopia Ears, nose, mouth, throat: DENIES: Hearing loss, Nasal discharge Respiratory: DENIES: Cough, Snoring Cardiovascular: COMPLAINS OF: Dyspnea on Exertion Gastrointestinal: DENIES: Black stools, Bloody stools, Constipation Genitourinary: DENIES: Urinary frequency, Urinary incontinence, Urgency Musculoskeletal: DENIES: Muscle aches Hematologic/Lymphatics: DENIES: Bruising, Lymphadenopathy Immunologic/Allergic: DENIES: Urticaria Neurologic: COMPLAINS OF: Seizures Psychiatric: DENIES: Confusion, Mood changes Past Family Social History Coded Allergies: No Known Allergies (Verified Allergy, Unknown, 04/13/18) Past Medical History A. fib CHF COPD CVA Chronic kidney diseaseAV fistula in left forearm Diabetes Neuropathy Past Surgical History Tonsillectomy Appendectomy Hernia repair Cataract Reported Medications Buspirone (Buspirone HCl) 15 Mg Tab 15 Mg PO BID Carbidopa-Levodopa 25-100 Mg Tab 1 Tab PO HS Carbidopa-Levodopa 25-100 Mg Tab 1 Tab PO Q8HR Digoxin 0.125 Mg Tab 0.125 Mg PO DAILY [Fiber Well Gummies ] 10 Grain PO DAILY [Mauricio Red] 750 Mg PO DAILY Aspirin EC Low Dose (Aspirin) 81 Mg Tabec 81 Mg PO DAILY Calcium Citrate + D3 Maximum Strength (Calcium Citrate-Vitamin D) 315-250 Mg- Unit Tab 2 Tab PO DAILY [place] Oil (Nutritional Supplements) 1 Cap Cap 1,080 Mg PO DAILY One-A-Day Mens (Multiple Vitamin) 1 Tab Tab 2 Tab PO DAILY Xalatan Opth Drops (Latanoprost) 0.005% Drops 1 Drop EACH EYE HS Ventolin Hfa 18 GM Inh (Albuterol Sulfate) 90 Mcg/Act Aer 2 Puff INH Q6H PRN Magnesium Oxide 420 Mg Tab 210 Mg PO DAILY Tanzeum 4-Pack Inj (Albiglutide) 30 Mg Pfpen 30 Mg SQ Q7D Lantus Inj (Insulin Glargine) 100 Unit/Ml Inj 16 Units SQ HS Remeron (Mirtazapine) 15 Mg Tab 15 Mg PO HS Zoloft (Sertraline HCl) 100 Mg Tab 150 Mg PO DAILY Coumadin (Warfarin) 5 Mg Tab 2.5 Mg PO SUTUTHSA Take 1/2 tablet (2.5mg) daily on Tuesday,Tuesday, and Tuesday Coumadin (Warfarin) 5 Mg Tab 5 Mg PO MOWEFR Take 1 tablet (5mg) on daily on Tuesday,Tuesday and Tuesday Potassium Chloride ER (Potassium Chloride) 10 Meq Tab 10 Meq PO DAILY Lasix (Furosemide) 20 Mg Tab 20 Mg PO DAILY Coreg (Carvedilol) 25 Mg Tab 12.5 Mg PO BID Current Medications Medications (Trade) Dose Ordered Sig/Iram Route Start Time Stop Time Status Last Admin (NS Flush) 2 ml UNSCH PRN IV FLUSH 04/13/18 12:15 (NS Flush) 2 ml BID IV FLUSH 04/13/18 21:00 04/14/18 07:27 (Duoneb Neb) 1 ampule Q6HR NEB NEB 04/13/18 12:15 04/14/18 08:22 (Duoneb Neb) 1 ampule Q4HR NEB PRN INH 04/13/18 12:15 (Tears Naturale Opth Soln) 1 drop TID EACH EYE 04/13/18 13:00 04/14/18 07:27 (Peridex 0.12% Liq) 15 ml BID@08,20 MT 04/13/18 20:00 04/14/18 07:27 (Pepcid) 10 mg BID TUBE 04/13/18 13:00 04/14/18 07:27 ([facility] Nursing Information) 1 Q361D XX 04/13/18 12:15 (Chlorhexidine 2% Cloth) 3 pack Taper DAILY@04 TOP 04/14/18 04:00 04/10/19 03:59 04/14/18 03:29 (Chlorhexidine 2% Cloth) 3 pack UNSCH PRN TOP 04/13/18 12:15 (NovoLOG SUPPLEMENTAL SCALE) 1 Q6HR SQ 04/13/18 13:00 Sodium Bicarbonate 150 meq/Sterile Water 1,000 ml @ 100 mls/hr Q10H IV 04/13/18 14:00 04/14/18 09:59 04/14/18 00:50 Levetriacetam 100 ml @ 400 mls/hr Q12HR IV 04/13/18 21:00 04/14/18 07:27 Norepinephrine Bitartrate 250 ml @ 7.5 mls/hr TITRATE PRN IV 04/13/18 13:00 (Brethine Inj) 1 mg UNSCH PRN SQ 04/13/18 13:00 Propofol 100 ml @ 3 mls/hr TITRATE PRN IV 04/13/18 15:00 04/14/18 08:49 (Catapres) 0.2 mg Q4H PRN OG-TUBE 04/13/18 17:15 (Lasix) 20 mg DAILY PO 04/14/18 09:00 (Coreg) 12.5 mg BID PO 04/13/18 21:00 04/13/18 19:53 Midazolam HCl 50 ml @ 1 mls/hr TITRATE PRN IV 04/13/18 19:15 04/14/18 06:02 Sodium Bicarbonate 150 meq/Sterile Water 1,000 ml @ 100 mls/hr Q10H IV 04/14/18 10:00 Family History No known family history of medical problems Substance Use Tobacco:No Alcohol:Patient in the past had denie etoh, but report that pt does have 4 drinks per night Prescription med abuse:no Illicits:no Psychosocial History Patient lives at home with his No children Served in [place] Spiritual/Cultural Factors none listed Living Will: Completed, but not made available Health Care Surrogate(s): Per it is herself Teddy Obando Physical Exam Vital Signs Date Time Temp Pulse Resp B/P (MAP) Pulse Ox O2 Delivery O2 Flow Rate FiO2 04/14/18 08:24 96 90 04/14/18 06:00 101 04/14/18 04:00 98.0 96 20 102/71 (81) 99 04/14/18 04:00 75 04/14/18 04:00 96 04/14/18 03:52 99 45 04/14/18 02:00 96 04/14/18 01:12 100 55 04/14/18 00:00 98.2 100 20 154/102 (119) 100 04/14/18 00:00 100 04/14/18 00:00 75 04/13/18 22:00 93 04/13/18 20:57 100 65 04/13/18 20:00 89 04/13/18 20:00 75 04/13/18 20:00 98.0 89 26 198/106 (136) 100 04/13/18 18:00 88 04/13/18 18:00 182/106 (131) 04/13/18 17:36 100 75 04/13/18 16:08 100 04/13/18 16:00 90 04/13/18 16:00 97.6 87 22 167/94 (118) 100 04/13/18 15:00 167/94 (118) 04/13/18 14:00 164/96 (118) 04/13/18 13:00 97.7 65 23 151/74 (99) 100 04/13/18 12:30 95 100 04/13/18 12:06 100 04/13/18 11:58 54 12 93/63 (73) 100 Auto-Vent 100 04/13/18 11:18 100 50 04/13/18 10:47 67 12 100 Auto-Vent 100 04/13/18 10:30 99 100 04/13/18 10:27 98.9 88 12 135/77 (96) 95 04/13/18 10:22 100 Exam CONSTITUTIONAL/GENERAL: This is a 68 year old male, intubated and sedated TUBES/LINES/DRAINS: PIV left fore arm, rangel, Orogastric tube, intubated SKIN: No jaundice, rashes, or lesions. HEAD: Atraumatic. Normocephalic. EYES: Pupils pin point. No scleral icterus. No injection or drainage. Fundi not examined. ENT: Nose without bleeding or purulent drainage. Throat intubated NECK: Trachea midline. Supple, nontender. No palpable thyroid enlargement or nodularity. CARDIOVASCULAR: Regular rate and rhythm without murmurs, gallops, or rubs. No JVD. Peripheral pulses symmetric. RESPIRATORY/CHEST: Symmetric, unlabored respirations. Clear to auscultation. Breath sounds equal bilaterally. No wheezes, rales, or rhonchi. GASTROINTESTINAL: Abdomen soft, non-tender, nondistended.. Bowel sounds present. GENITOURINARY: Without palpable bladder distension. Rangel catheter in place. MUSCULOSKELETAL: Extremities without clubbing, cyanosis, or edema. Left arm AV fistula LYMPHATICS: No palpable cervical or supraclavicular adenopathy. NEUROLOGICAL: No posturing. intubated and sedated. PSYCHIATRIC: unable to examine due to level of responsiveness.. Diagnostic Tests Laboratory Laboratory Tests Test 04/13/18 11:04 04/13/18 11:08 04/13/18 14:00 04/13/18 15:41 Blood Gas Puncture Site RT RADIAL Blood Gas Patient Temperature 98.6 Blood Gas HCO3 16 mmol/L (22-26) Blood Gas Base Excess -12.4 mmol/L (-2-2) Blood Gas Oxygen Saturation 97 % (90-100) Arterial Blood pH 7.06 (7.380-7.420) Arterial Blood Partial Pressure CO2 60 mmHg (38-42) Arterial Blood Partial Pressure O2 394 mmHG (61-120) Arterial Blood Oxygen Content 14.7 Vol % (12.0-20.0) Arterial Blood Carboxyhemoglobin 1.0 % (0-4) Arterial Blood Methemoglobin 1.0 % (0-2) Blood Gas Hemoglobin 10.0 G/DL (12.0-16.0) Oxygen Delivery Device VENTILATOR Blood Gas Ventilator Setting SEE COMMENTS Blood Gas Inspired Oxygen 100 % White Blood Count 5.7 TH/MM3 (4.0-11.0) Red Blood Count 2.81 MIL/MM3 (4.50-5.90) Hemoglobin 10.1 GM/DL (13.0-17.0) Hematocrit 32.0 % (39.0-51.0) Mean Corpuscular Volume 113.8 FL (80.0-100.0) Mean Corpuscular Hemoglobin 35.9 PG (27.0-34.0) Mean Corpuscular Hemoglobin Concent 31.6 % (32.0-36.0) Red Cell Distribution Width 16.4 % (11.6-17.2) Platelet Count 116 TH/MM3 (150-450) Mean Platelet Volume 10.0 FL (7.0-11.0) Neutrophils (%) (Auto) 68.3 % (16.0-70.0) Lymphocytes (%) (Auto) 21.3 % (9.0-44.0) Monocytes (%) (Auto) 6.5 % (0.0-8.0) Eosinophils (%) (Auto) 3.0 % (0.0-4.0) Basophils (%) (Auto) 0.9 % (0.0-2.0) Neutrophils # (Auto) 3.9 TH/MM3 (1.8-7.7) Lymphocytes # (Auto) 1.2 TH/MM3 (1.0-4.8) Monocytes # (Auto) 0.4 TH/MM3 (0-0.9) Eosinophils # (Auto) 0.2 TH/MM3 (0-0.4) Basophils # (Auto) 0.1 TH/MM3 (0-0.2) CBC Comment AUTO DIFF Differential Total Cells Counted 100 Neutrophils % (Manual) 58 % (16-70) Band Neutrophils % 8 % (0-6) Lymphocytes % 18 % (9-44) Monocytes % 7 % (0-8) Eosinophils % 3 % (0-4) Basophils % 1 % (0-2) Neutrophils # (Manual) 4.0 TH/MM3 (1.8-7.7) Metamyelocytes 1 % (0-1) Myelocytes 4 % (0-0) Differential Comment FINAL DIFF MANUAL Platelet Estimate LOW (NORMAL) Platelet Morphology Comment NORMAL (NORMAL) Prothrombin Time 23.9 SEC (9.8-11.6) Prothromb Time International Ratio 2.4 RATIO Activated Partial Thromboplast Time 29.7 SEC (24.3-30.1) Blood Urea Nitrogen 48 MG/DL (7-18) Creatinine 3.12 MG/DL (0.60-1.30) Random Glucose 164 MG/DL (74-106) Total Protein 7.1 GM/DL (6.4-8.2) Albumin 3.1 GM/DL (3.4-5.0) Calcium Level 8.2 MG/DL (8.5-10.1) Magnesium Level 2.1 MG/DL (1.5-2.5) Alkaline Phosphatase 82 U/L (45-117) Aspartate Amino Transf (AST/SGOT) 253 U/L (15-37) Alanine Aminotransferase (ALT/SGPT) 27 U/L (12-78) Total Bilirubin 0.6 MG/DL (0.2-1.0) Sodium Level 140 MEQ/L (136-145) Potassium Level 5.6 MEQ/L (3.5-5.1) Chloride Level 111 MEQ/L (98-107) Carbon Dioxide Level 16.0 MEQ/L (21.0-32.0) Anion Gap 13 MEQ/L (5-15) Estimat Glomerular Filtration Rate 20 ML/MIN (>89) Total Creatine Kinase 72 U/L (39-308) Troponin I LESS THAN 0.02 NG/ML Urine Color YELLOW (YELLW/STRAW) Urine Turbidity HAZY (CLEAR) Urine pH 5.5 (5.0-8.5) Urine Specific Mckinney 1.009 (1.002-1.035) Urine Protein 100 mg/dL (NEG-TRACE) Urine Glucose (UA) NEG mg/dL (NEG) Urine Ketones NEG mg/dL (NEG) Urine Occult Blood NEG (NEG) Urine Nitrite NEG (NEG) Urine Bilirubin NEG (NEG) Urine Urobilinogen LESS THAN 2.0 MG/DL (LESS Urine Leukocyte Esterase NEG (NEG) Urine RBC LESS THAN 1 /hpf (0-3) Urine WBC 1 /hpf (0-5) Urine Squamous Epithelial Cells <1 /hpf (0-5) Urine Amorphous Sediment FEW Urine Bacteria OCC /hpf (NONE) Urine Hyaline Casts 3 /lpf (RARE) Urine Mucus FEW /lpf (OCC) Microscopic Urinalysis Comment CATH-CULTURE IND Nasal Screen MRSA (PCR) MRSA NOT DETECTED (NOT Stool C. difficile Toxin (PCR) NEGATIVE (NEGATIVE) Stl C. difficile Toxin Epiderm 027 PRESUMPTIVE NEGATIVE Test 04/13/18 18:55 04/13/18 20:05 04/14/18 02:50 Total Creatine Kinase 167 U/L (39-308) 168 U/L (39-308) Troponin I 0.09 NG/ML (0.02-0.05) 0.07 NG/ML (0.02-0.05) Blood Gas Puncture Site RT RADIAL Blood Gas Patient Temperature 98.6 Blood Gas HCO3 18 mmol/L (22-26) Blood Gas Base Excess -5.9 mmol/L (-2-2) Blood Gas Oxygen Saturation 97 % (90-100) Arterial Blood pH 7.40 (7.380-7.420) Arterial Blood Partial Pressure CO2 30 mmHg (38-42) Arterial Blood Partial Pressure O2 349 mmHg (61-120) Arterial Blood Oxygen Content 12.8 Vol % (12.0-20.0) Arterial Blood Carboxyhemoglobin 0.9 % (0-4) Arterial Blood Methemoglobin 1.6 % (0-2) Blood Gas Hemoglobin 8.7 G/DL (12.0-16.0) Oxygen Delivery Device VENTILATOR Blood Gas Ventilator Setting SEE COMMENTS Blood Gas Inspired Oxygen 75 % White Blood Count 5.5 TH/MM3 (4.0-11.0) Red Blood Count 2.19 MIL/MM3 (4.50-5.90) Hemoglobin 8.1 GM/DL (13.0-17.0) Hematocrit 23.5 % (39.0-51.0) Mean Corpuscular Volume 107.3 FL (80.0-100.0) Mean Corpuscular Hemoglobin 36.9 PG (27.0-34.0) Mean Corpuscular Hemoglobin Concent 34.4 % (32.0-36.0) Red Cell Distribution Width 15.5 % (11.6-17.2) Platelet Count 99 TH/MM3 (150-450) Mean Platelet Volume 9.8 FL (7.0-11.0) Neutrophils (%) (Auto) 73.0 % (16.0-70.0) Lymphocytes (%) (Auto) 14.0 % (9.0-44.0) Monocytes (%) (Auto) 11.5 % (0.0-8.0) Eosinophils (%) (Auto) 1.0 % (0.0-4.0) Basophils (%) (Auto) 0.5 % (0.0-2.0) Neutrophils # (Auto) 4.0 TH/MM3 (1.8-7.7) Lymphocytes # (Auto) 0.8 TH/MM3 (1.0-4.8) Monocytes # (Auto) 0.6 TH/MM3 (0-0.9) Eosinophils # (Auto) 0.1 TH/MM3 (0-0.4) Basophils # (Auto) 0.0 TH/MM3 (0-0.2) CBC Comment AUTO DIFF Differential Total Cells Counted 100 Neutrophils % (Manual) 56 % (16-70) Band Neutrophils % 27 % (0-6) Lymphocytes % 10 % (9-44) Monocytes % 4 % (0-8) Eosinophils % 2 % (0-4) Neutrophils # (Manual) 4.6 TH/MM3 (1.8-7.7) Metamyelocytes 1 % (0-1) Differential Comment FINAL DIFF MANUAL Platelet Estimate LOW (NORMAL) Platelet Morphology Comment ENLARGED (NORMAL) Prothrombin Time 25.9 SEC (9.8-11.6) Prothromb Time International Ratio 2.6 RATIO Blood Urea Nitrogen 55 MG/DL (7-18) Creatinine 3.16 MG/DL (0.60-1.30) Random Glucose 113 MG/DL (74-106) Total Protein 5.7 GM/DL (6.4-8.2) Albumin 2.5 GM/DL (3.4-5.0) Calcium Level 7.3 MG/DL (8.5-10.1) Alkaline Phosphatase 71 U/L (45-117) Aspartate Amino Transf (AST/SGOT) 190 U/L (15-37) Alanine Aminotransferase (ALT/SGPT) 39 U/L (12-78) Total Bilirubin 0.4 MG/DL (0.2-1.0) Sodium Level 142 MEQ/L (136-145) Potassium Level 4.3 MEQ/L (3.5-5.1) Chloride Level 105 MEQ/L (98-107) Carbon Dioxide Level 27.2 MEQ/L (21.0-32.0) Anion Gap 10 MEQ/L (5-15) Estimat Glomerular Filtration Rate 20 ML/MIN (>89) Protein Corrected Calcium 8.1 MG/DL (8.5-10.1) Result Diagram: 04/14/18 0250 04/14/18 0250 Microbiology Microbiology Date/Time Source Procedure Growth Status 04/13/18 13:30 Blood Peripheral Aerobic Blood Culture Pending Received 04/13/18 13:30 Blood Peripheral Anaerobic Blood Culture Pending Received 04/13/18 13:25 Blood Peripheral Aerobic Blood Culture Pending Received 04/13/18 13:25 Blood Peripheral Anaerobic Blood Culture Pending Received 04/13/18 14:00 Urine Catheterized Urine Urine Culture Pending Received Patient/Family Conference Family Conference Location: Bedside Issues Discussed: * Palliative care role, purpose, approach * Additional medical, psychosocial, and spiritual history * Patients general health, functional status, and cognitive changes in the months leading up to the current hospitalization * Patient/family understanding of the current medical problems * Patient/family understanding of prognosis * Patients goals of care as best understood from advance directives and/or conversations and/or values * Current medical treatment options and benefits/burdens of those options * Likely scenarios comparing ongoing aggressive care with a transition to comfort measures only * Questions answered to the best of my ability * Palliative care contact information provided Assessment and Plan Disease Oriented Problem List: (1) PEA (Pulseless electrical activity) (2) CKD (chronic kidney disease) stage 4, GFR 15-29 ml/min (3) Atrial fibrillation (4) CHF (congestive heart failure) (5) DM (diabetes mellitus) (6) Encephalopathy Symptom Scale: Pertinent Non-Medical Issues Psychosocial: Spiritual: Legal: Ethical issues impacting care: Important Contacts Rocky Obando (spouse) [phone] Prognosis Prognosis is guarded. Pt is 68 year old with hx of copd, chf, afib came in with PEA. There is concern about significant anoxic encephalopathy. Code Status: No Code Plan == code: DNR. == capacity- patient does not have capacity to make medical decisions. High chance patient has anoxic encephalopathy and may not regain capacity making decisions. == decision maker- there is a living will which is not available currently. does have it. state she is the decision maker. Per chloé charles, would be health care proxy if no living will was done. currently health care decision maker is Jian Espinal. == symptoms- anxiety- from encephalopathy, seizures- on versed dyspnea- has hx of copd- on ventilator, duonebs == goals of therapy.: Advance care planning 20 min; DNR. Patient on my visit is unresponsive, sedated and intubated. I spoke to at bedside. Discuss patients current clinical situation, review eeg and MRI results. Spoke about concerns about encephalopathy from anoxia, dependence on termite control servicer life support, trach, vent, dialysis etc. endorse patient would not have wanted any of this. She is amenable to give pt over the weekend to see if patient rebounds, however if patient does not, she is open for patient to transition to comfort measures, such as hospice. == palliative care will continue to follow to make recommendations for symptom management, and to review goals of therapy as clinical condition evolves. Thank you for the opportunity to participate in the care of Mr. Chase. Attestation To help prompt me to consider important information that might be impacting today's encounter and assessment, information from prior notes written by myself or my colleagues may have been "brought forward" into today's note. My signature on this note, however, is an attestation that I personally performed the exam, history, and/or decision-making noted today, and, unless otherwise indicated, the interactions with patient, family, and staff as well as the review of records all occurred today. I also attest that the listed assessment and stated plan reflect my best clinical judgment today based on the combination of historical information, prior notes, and today's exam/ interactions. When time spent is documented, it refers only to time spent today by the signer, or if indicated, combined time spent today by collaborating physician/nurse practitioner. Jesus Alberto Engel MD April 14, 2018 10:10
--- NOTE | 2018-04-14 10:31 | MG ---
cc: Eleuterio Jarquin MD EEG NUMBER: [id number] NOTE: No sedatives, unresponsive, intubated. Jerking of the body. MEDICATIONS: Keppra and Ativan given. DESCRIPTION OF RECORD: . The recording shows extremely low amplitude background. Some head twitching is noted, but only shows muscle artifact with that. I suspect these are probably myoclonic jerks that are not generated from the brain. Some jaw jerking is noted, again just some muscle artifact. There were no hemisphere asymmetries. IMPRESSION: A very low-amplitude background, is consistent with a severe diffuse encephalopathy. Clinical correlation is needed. MD NÉSTOR Villarreal/MILA , 10:19 AM , 10:30 AM
--- NOTE | 2018-04-14 13:23 | RADRPT ---
EXAM DATE: 04/14/2018 1:15 PM EDT AGE/SEX: 68 years / Male INDICATIONS: . Anoxic brain injury. CLINICAL DATA: This is the patient's initial encounter. Patient reports that signs and symptoms have been present for 1 day and indicates a pain score of 0/10. MEDICAL/SURGICAL HISTORY: Hypertension. Chronic obstructive pulmonary disease. Diabetes melli tus type II. CHF. Inguinal hernia repair. COMPARISON: [facility] [place], MRI BRAIN W/O CONTRAST, 07/12/2016. . TECHNIQUE: Multiplanar, multisequence examination of the brain was performed without contrast. FINDINGS: There is a remote infarct in the right cerebellar hemisphere posterior left brain, stable 2016. No re cent infarction identified on diffusion-weighted images. There is cortical volume loss and moderate c hronic ischemic changes with small lacunar infarcts in the periventricular white matter which are sta ble. No new mass effect or shift. No hydrocephalus. CONCLUSION: 1. Stable moderate chronic white matter ischemic changes, lacunar infarcts as well as previous corti polina infarcts in the posterior left brain and right cerebellar hemisphere. No new infarct or mass effe ct. Electronically signed by: Luiz Bruce MD 04/14/2018 1:22 PM EDT
--- NOTE | 2018-04-14 14:39 | HHI.CCPN ---
Subjective Remarks/Hospital Course 04/13: 68-year-old male patient presents to the ER today brought in by EMS was a CODE BLUE, was in PEA arrest when they found him slumped in the car, apparently had just eaten at a restaurant and walked out to his car, and slumped over according to patient's . He was in PEA and was given 3 rounds of CPR and epinephrine. He arrives with bag valve mask in progress, EMS noted that he had taken a few gasps of breathing while they were on the ramp, and by the time he got into the ER room, he had a detectable pulse, perfusing rhythm seen on monitor with good blood pressure. He remained comatose with GCS 3 following ROSC and was intubated by ER physician for airway protection. When I evaluated patient he was comatose, [facility]. History obtained by reviewing records, d/w ER physician and patient's at bedside. Patient had significant diarrhea in ER. He was on antibiotics recently following his AV fistula palcement till 1 week before current presentation. He is followed [facility]. 04/14: Remains encephalopathic, orally intubated on mechanical ventilation. Having myoclonic jerks. Objective Vital Signs Date Time Temp Pulse Resp B/P (MAP) Pulse Ox O2 Delivery O2 Flow Rate FiO2 04/14/18 14:00 114 04/14/18 12:30 96 80 04/14/18 12:00 97.6 20 92/67 (75) 04/13/18 11:58 Auto-Vent Intake and Output 04/14/18 04/14/18 04/15/18 08:00 16:00 00:00 Intake Total 1457.1 ml Output Total 400 ml Balance 1057.1 ml Result Diagram: 04/14/18 0250 04/14/18 0250 Other Results Laboratory Tests Test 04/13/18 20:05 Blood Gas Puncture Site RT RADIAL Blood Gas Patient Temperature 98.6 Blood Gas HCO3 18 mmol/L (22-26) Blood Gas Base Excess -5.9 mmol/L (-2-2) Blood Gas Oxygen Saturation 97 % (90-100) Arterial Blood pH 7.40 (7.380-7.420) Arterial Blood Partial Pressure CO2 30 mmHg (38-42) Arterial Blood Partial Pressure O2 349 mmHg (61-120) Arterial Blood Oxygen Content 12.8 Vol % (12.0-20.0) Arterial Blood Carboxyhemoglobin 0.9 % (0-4) Arterial Blood Methemoglobin 1.6 % (0-2) Blood Gas Hemoglobin 8.7 G/DL (12.0-16.0) Oxygen Delivery Device VENTILATOR Blood Gas Ventilator Setting SEE COMMENTS Blood Gas Inspired Oxygen 75 % Imaging Last Impressions CT Angiography 04/13/18 1130 Signed Impressions: CONCLUSION: 1. No definite pulmonary embolism. 2. Nonspecific interstitial infiltrate throughout the entire right lung. 3. Scattered parenchymal infiltrates are seen throughout the right lung. 4. Bibasilar atelectasis. 5. Cardiomegaly. Head CT 04/13/18 1026 Signed Impressions: CONCLUSION: 1. No acute intracranial abnormality or significant interval change. 2. Old infarcts in the left temporoparietal mid convexities and right cerebell um. 3. Senescent changes with periventricular small vessel ischemic white matter d emyelination. Chest X-Ray 04/13/18 1023 Signed Impressions: CONCLUSION: Endotracheal tube and nasogastric tube in good position. Bilateral airspace dis ease as above without effusion or pneumothorax. Objective Remarks HEENT/ Neuro: Encephalopathic, comatose, GCS 3, orally intubated, Pallor present , no icterus, tongue/ mucosa moist Neck: No JVD Chest/Pulm: on mech vent, good air entry bilaterally, no wheezing or crackles CVS: S1-S2 regular, no murmur GI/abdomen: soft, nontender, bowel sounds sluggish Extremities: warm bilaterally, no edema. AV fistula left forearm noted A/P Assessment and Plan 68-year-old male with: Out of hospital cardiac arrest-PEA status post CPR Anoxic encephalopathy Myoclonic seizures Hyperkalemia CKD History of strokes Metabolic acidosis H/o Afib H/o CHF H/o COPD H/O ? Parkinson's disease Plan: Neuro: propofol if needed for sedation. Versed gtt started per Neurology for myoclonic jerking. EEG abnormal. Head CT negative for bleed. Neurology consult noted.. Cardiovascular: Watch for hypotension. Serial cardiac enzymes. 2D echo to assess LV function. Check BNP. Continue anticoagulation with coumadin for Afib. Pulmonary: Continue mechanical ventilation, vent bundle, bronchodilators as needed. GI/liver: Start tube feeds and advance to goal as tolerated. Diarrhea noted. Patient was on antibiotics recently for AV fistula placement. Stool for C. difficile negative. Renal/: IV hydration, strict intake output, monitor and replete electrolytes, follow BUN/creatinine. Patient is followed at [facility] for [facility] and had a recent AV fistula placed for in preparation for hemodialysis. Nephrology consult requested. Ordered glucose/insulin/bicarb/calcium and Kayexalate for hyperkalemia. Ordered bicarb drip ID: Pancultures ordered. Stool for C. difficile negative. Endocrine: SSI for glycemic control Heme: Follow CBC and coags. On anticoagulation with Coumadin. Follow INR Prophylaxis: Pepcid/SCDs. On anticoagulation with Coumadin Condition critical Discussed extensively with patient's at bedside . She wishes to change CODE STATUS to DNR in accordance to patient's known wishes. Consulted palliative care to assist with deciding goals of therapy. Prognosis appears poor due to severe anoxic brain injury. Time spent on critical care excluding procedures 40 minutes Haja Barahona MD April 14, 2018 14:38
--- NOTE | 2018-04-14 16:34 | HHI.PR ---
Review/Management Diagnosis anoxic encephalopathy. THe presence or myoclonus indicates a severe degree of anoxic injury. Prognosis guarded. Plan contineu versed and diprivan. attempt to wean sedatives next 2-3 days. I discussed case in detail with his . Diagnosis/Plan: Subjective Subjective Comments No acute events reported On 10 mg/hr versed and diprivan 50 ug. myoclonus suppressed, but still has occasional myoclonus with stimulus Active Medications Current Medications Medications (Trade) Dose Ordered Sig/Iram Route Start Time Stop Time Status Last Admin (NS Flush) 2 ml UNSCH PRN IV FLUSH 04/13/18 12:15 (NS Flush) 2 ml BID IV FLUSH 04/13/18 21:00 04/14/18 07:27 (Duoneb Neb) 1 ampule Q6HR NEB NEB 04/13/18 12:15 04/14/18 16:07 (Duoneb Neb) 1 ampule Q4HR NEB PRN INH 04/13/18 12:15 (Tears Naturale Opth Soln) 1 drop TID EACH EYE 04/13/18 13:00 04/14/18 13:00 (Peridex 0.12% Liq) 15 ml BID@08,20 MT 04/13/18 20:00 04/14/18 07:27 (Pepcid) 10 mg BID TUBE 04/13/18 13:00 04/14/18 07:27 ([facility] [place] [facility]) 1 [id number] XX 04/13/18 12:15 (Chlorhexidine 2% Cloth) 3 pack Taper DAILY@04 TOP 04/14/18 04:00 04/10/19 03:59 04/14/18 03:29 (Chlorhexidine 2% Cloth) 3 pack UNSCH PRN TOP 04/13/18 12:15 (NovoLOG SUPPLEMENTAL SCALE) 1 Q6HR SQ 04/13/18 13:00 Levetriacetam 100 ml @ 400 mls/hr Q12HR IV 04/13/18 21:00 04/14/18 07:27 Norepinephrine Bitartrate 250 ml @ 7.5 mls/hr TITRATE PRN IV 04/13/18 13:00 (Brethine Inj) 1 mg UNSCH PRN SQ 04/13/18 13:00 Propofol 100 ml @ 3 mls/hr TITRATE PRN IV 04/13/18 15:00 04/14/18 15:29 (Catapres) 0.2 mg Q4H PRN OG-TUBE 04/13/18 17:15 (Lasix) 20 mg DAILY PO 04/14/18 09:00 (Coreg) 12.5 mg BID PO 04/13/18 21:00 04/13/18 19:53 Midazolam HCl 50 ml @ 1 mls/hr TITRATE PRN IV 04/13/18 19:15 04/14/18 11:00 Sodium Bicarbonate 150 meq/Sterile Water 1,000 ml @ 100 mls/hr Q10H IV 04/14/18 10:00 04/14/18 10:00 Allergies Allergies Coded Allergies No Known Allergies (Verified Allergy, Unknown, 04/13/18) Exam I&O / VS 04/14/18 04/14/18 04/15/18 15:00 23:00 07:00 Intake Total 1250 ml 150 ml Balance 1250 ml 150 ml IV Total 1250 ml 150 ml Vital Signs Date Time Temp Pulse Resp B/P (MAP) Pulse Ox O2 Delivery O2 Flow Rate FiO2 04/14/18 14:00 114 04/14/18 12:30 96 80 04/14/18 12:29 99 100 04/14/18 12:00 85 04/14/18 12:00 85 04/14/18 12:00 97.6 110 20 92/67 (75) 99 04/14/18 12:00 98 04/14/18 10:00 104 04/14/18 08:24 96 90 04/14/18 08:00 100 04/14/18 08:00 114 04/14/18 08:00 97.4 114 20 98/62 92 04/14/18 08:00 100 04/14/18 06:00 101 04/14/18 04:00 98.0 96 20 102/71 (81) 99 04/14/18 04:00 75 04/14/18 04:00 96 04/14/18 03:52 99 45 04/14/18 02:00 96 04/14/18 01:12 100 55 04/14/18 00:00 98.2 100 20 154/102 (119) 100 04/14/18 00:00 100 04/14/18 00:00 75 04/13/18 22:00 93 04/13/18 20:57 100 65 04/13/18 20:00 89 04/13/18 20:00 75 04/13/18 20:00 98.0 89 26 198/106 (136) 100 04/13/18 18:00 88 04/13/18 18:00 182/106 (131) 04/13/18 17:36 100 75 Exam Comments nonresponsive/sedated pupils 1 mm bilateral reactive EOM --minimally intact to occulocephalics MOTOR--no withdrawal. NO posturing. No myoclonus at this time Objective Radiology Results MRI brain--old lacunar infarcts. No acute change on diffusion weighted images. No edema Micro and Labs Laboratory Tests Test 04/13/18 18:55 04/13/18 20:05 04/14/18 02:50 Total Creatine Kinase 167 168 Troponin I 0.09 0.07 Blood Gas Puncture Site RT RADIAL Blood Gas Patient Temperature 98.6 Blood Gas HCO3 18 Blood Gas Base Excess -5.9 Blood Gas Oxygen Saturation 97 Arterial Blood pH 7.40 Arterial Blood Partial Pressure CO2 30 Arterial Blood Partial Pressure O2 349 Arterial Blood Oxygen Content 12.8 Arterial Blood Carboxyhemoglobin 0.9 Arterial Blood Methemoglobin 1.6 Blood Gas Hemoglobin 8.7 Oxygen Delivery Device VENTILATOR Blood Gas Ventilator Setting SEE COMMENTS Blood Gas Inspired Oxygen 75 White Blood Count 5.5 Red Blood Count 2.19 Hemoglobin 8.1 Hematocrit 23.5 Mean Corpuscular Volume 107.3 Mean Corpuscular Hemoglobin 36.9 Mean Corpuscular Hemoglobin Concent 34.4 Red Cell Distribution Width 15.5 Platelet Count 99 Mean Platelet Volume 9.8 Neutrophils (%) (Auto) 73.0 Lymphocytes (%) (Auto) 14.0 Monocytes (%) (Auto) 11.5 Eosinophils (%) (Auto) 1.0 Basophils (%) (Auto) 0.5 Neutrophils # (Auto) 4.0 Lymphocytes # (Auto) 0.8 Monocytes # (Auto) 0.6 Eosinophils # (Auto) 0.1 Basophils # (Auto) 0.0 CBC Comment AUTO DIFF Differential Total Cells Counted 100 Neutrophils % (Manual) 56 Band Neutrophils % 27 Lymphocytes % 10 Monocytes % 4 Eosinophils % 2 Neutrophils # (Manual) 4.6 Metamyelocytes 1 Differential Comment FINAL DIFF MANUAL Platelet Estimate LOW Platelet Morphology Comment ENLARGED Prothrombin Time 25.9 Prothromb Time International Ratio 2.6 Blood Urea Nitrogen 55 Creatinine 3.16 Random Glucose 113 Total Protein 5.7 Albumin 2.5 Calcium Level 7.3 Alkaline Phosphatase 71 Aspartate Amino Transf (AST/SGOT) 190 Alanine Aminotransferase (ALT/SGPT) 39 Total Bilirubin 0.4 Sodium Level 142 Potassium Level 4.3 Chloride Level 105 Carbon Dioxide Level 27.2 Anion Gap 10 Estimat Glomerular Filtration Rate 20 Protein Corrected Calcium 8.1 Date/Time Source Procedure Growth Status 04/13/18 13:30 Blood Peripheral Aerobic Blood Culture - Preliminary NO GROWTH IN 1 DAY Resulted 04/13/18 13:30 Blood Peripheral Anaerobic Blood Culture - Preliminary NO GROWTH IN 1 DAY Resulted 04/13/18 14:00 Urine Catheterized Urine Urine Culture - Preliminary NO GROWTH IN 24 HOURS. Resulted Fer Mccormack MD PhD April 14, 2018 16:34
[2018-04-14] MEDS ORDERED: ATROPINE SULFATE 1 MG/10 ML SYRINGE ONE (18:44)
[2018-04-14] MEDS ORDERED: EPINEPHrine HCL (1:10,000) 1 MG/10 ML SYRINGE ONE (18:49)
== END 2018-04-14 18:52 | disposition expired | DRG 292 ==
LOC: NEPE 10:14 → NEDH 11:58 → HIME 12:35
PROVIDERS: ADMIT Internal Medicine Critical Care Medicine; ATTEND Internal Medicine Critical Care Medicine
PROC: 5A1945Z Respiratory Ventilation, 24-96 Consecutive Hours (ICD-10-PCS; principal; 2018-04-13)
PROC: 0BH17EZ Insertion of Endotracheal Airway into Trachea, Via Natural or Artificial Opening (ICD-10-PCS; 2018-04-13)
DX: R57.0 Cardiogenic shock (principal); G93.1 Anoxic brain damage, not elsewhere classified; E87.2 Acidosis; N18.4 Chronic kidney disease, stage 4 (severe); N17.9 Acute kidney failure, unspecified; I48.91 Unspecified atrial fibrillation; E11.22 Type 2 diabetes mellitus with diabetic chronic kidney disease; E11.40 Type 2 diabetes mellitus with diabetic neuropathy, unspecified; G25.3 Myoclonus; I13.0 Hypertensive heart and chronic kidney disease with heart failure and stage 1 through stage 4 chronic kidney disease, or unspecified chronic kidney disease; J98.11 Atelectasis; R56.9 Unspecified convulsions; I50.9 Heart failure, unspecified; G20 Parkinson's disease; J44.9 Chronic obstructive pulmonary disease, unspecified; E78.5 Hyperlipidemia, unspecified; R40.2432 Glasgow coma scale score 3-8, at arrival to emergency department; R19.7 Diarrhea, unspecified; E87.5 Hyperkalemia; R91.8 Other nonspecific abnormal finding of lung field; H40.9 Unspecified glaucoma; F32.9 Major depressive disorder, single episode, unspecified; F41.9 Anxiety disorder, unspecified; Z66 Do not resuscitate; Z79.01 Long term (current) use of anticoagulants; Z79.4 Long term (current) use of insulin; Z86.73 Personal history of transient ischemic attack (TIA), and cerebral infarction without residual deficits
CPT/HCPCS: 36600; 70450; 70551; 71045; 71275; 80053; 81001; 82550; 82805; 82948; 83735; 84484; 85007; 85027; 85610; 85730; 87040; 87070; 87086; 87205; 87493; 87641; 93005; 94002; 94003; 94640; 94664; 95819; J0171; J0461; J0610; J1815; J1953; J2250; J7030; Q9967